=== PATIENT | female | born 1975 | race Asian ===

== ENCOUNTER 2016-07-29 21:56 | Emergency (ER) | payer OTHER ==
[~2016-07-29] VITALS: Ht 160 cm; Wt 76.7 kg
[~2016-07-29 21:56] MED LIST: PRENTAB26
[2016-07-29 21:58] VITALS: TEMP 36.9; Ht 160 cm; Wt 76.7 kg
[2016-07-29] MEDS ORDERED: XYLOCAINE 1%/SOD BICARB 20 ML VIAL INFIL ONE (22:15)
[2016-07-29] MEDS ORDERED: DOXY50CA PO (22:41)
[2016-07-29] MEDS ORDERED: IBUP-1050 PO (22:41)
[2016-07-29] MEDS ORDERED: SPIR50TA2 PO (22:48)
[2016-07-29 23:22] VITALS: BP 151/81; PULSE 71; O2SAT 100
--- NOTE | 2016-08-01 16:04 | EMERGENCY ROOM VISIT NOTE ---
ED Visit Note First contact with patient: 22:13 Chief Complaint: Left index finger laceration. History of Present Illness: Ms. Reed is a 40-year-old [place] female who ambulates into the ED accompanied by her complaining of a laceration of the distal phalanx of the left index finger. Patient reports she was preparing food for the upcoming and accidentally cut her left index finger over the posterior aspect of the left index finger with a sharp knife. Her accident occurred approximately 4 hours ago. She did control bleeding but did not wash the wound. Associated with her laceration she reports a stinging sensation. She rates her discomfort /10. The pain is nonradiating. Her pain worsens with palpation. She has not identified any alleviating factors related to the pain. She has not had any medications for pain prior to arrival at the hospital. She denies any associated symptoms including difficulty flexing and extending the DIP joint , finger weakness/numbness/tingling. Review of Systems: As noted above in history of present illness. Past Medical History: Patient denies. Current Medications: Medications Dose Route/Sig Max Daily Dose Days Date Category Dose Instructions Aldactone (Spironolactone) 50 Mg Tab 50 Mg PO DAILY 07/29/16 Reported TAKE THIS MEDICATION WITH FOOD Advil (Ibuprofen) 200 Mg Tab 200 Mg PO UD PRN 07/29/16 Reported TAKE PER PACKAGE DIRECTIONS Vibramycin (Doxycycline Hyclate) 50 Mg Cap 50 Mg PO DAILY 07/29/16 Reported TAKE THIS MEDICATION WITH FOOD Allergies to Medications: Patient denies. Social History: Patient is not employed; she lives with her and feels safe in her home environment; she denies tobacco and alcohol use. Tetanus Immunization Status: Patient reports up-to-date. Physical Examination: Vital Signs: Date Time Temp Pulse Resp B/P Pulse Ox O2 Delivery O2 Flow Rate FiO2 07/29/16 23:22 71 18 151/81 100 07/29/16 21:58 36.9 69 16 169/79 100 Room Air GENERAL: 40-year-old female in mild distress due to pain, nontoxic-appearing, afebrile and hemodynamically stable. NEUROLOGICAL: Awake, alert and oriented to person, place and time. Answering questions appropriately and following commands. Normal gait. Good hand eye coordination. No focal motor sensory deficits. SKIN: Warm, dry and pink. Left Index Finger: Over the posterior aspect of the finger just medial to the fingernail patient has a superficial near skin avulsion ; approximately 1 cm diameter oval pieces skin. No active bleeding. LEFT INDEX FINGER: Soft tissue injury as noted above. No gross bony deformity. Full range of motion. Full range of motion flexion and extension of the MCP, DIP and PIP joint. Throughout the finger the skin was warm and pink and capillary refill is brisk. She is able to distinguish light sensations through all dermatomes. ED Course: Patient is assessed as noted above. Patient's wound was cleansed with antibacterial soap and water. Initially I was going to attempt to use some suture strips to stabilize the near avulsion but then while stabilizing the piece of skin and fell off. Wound was cleansed with antibacterial soap and water once again and a sterile bacitracin dressing was applied. Patient was educated about tonight's findings and instructed on her treatment plan; she verbalizes understanding and agreement with this plan. Clinical Impression: Skin avulsion left index finger. Disposition: Patient discharged home in stable condition; prior to departure she was reassessed and subjectively reported feeling the same. Plan: Comfort measures, wound care, and signs of infection were discussed with the patient. Patient was encouraged to follow-up with PCP or return to the ED for signs of infection or any new/concerning symptoms.
== END 2016-07-29 23:22 | disposition home or self-care (01) ==
LOC: C.EDB 21:57 → C.EDC 23:22
DX: S61.211A Laceration without foreign body of left index finger without damage to nail, initial encounter (principal); W26.0XXA Contact with knife, initial encounter; Y93.G1 Activity, food preparation and clean up

== ENCOUNTER → 2016-07-31 | Outpatient (CLI) | payer OTHER ==
[~2016-07-31] MED LIST changes: +DOXY50CA PO; +IBUP-1050 PO; -PRENTAB26; +SPIR50TA2 PO
[2016-07-31 16:07] LABS: URINE APPEARANCE CLEAR (CLEAR); URINE BILIRUBIN NEG (NEG); URINE COLOR DK YELLOW; URINE NITRITE NEG (NEG); UROBILINOGEN NEG (NEG)
[2016-07-31 16:14] LABS: MANUAL MICROSCOPIC REQUIRED? NO; REVIEW REQ? NO
[2016-08-04 17:48] LABS: HERPES SIMPLEX AB IGG-1 >5.00; HERPES SIMPLEX AB IGG-2 0.14
[2016-08-05 03:24] LABS: CHLAMYDIA TRACH RNA*** NOT DETECTED (NOT DETECTED); GC (NEIS GONORRHOEAE)RNA** NOT DETECTED (NOT DETECTED)
== END | disposition home or self-care (01) ==
LOC: C.LAB1850 13:05
PROVIDERS: ATTEND Obstetrics & Gynecology
DX: R39.9 Unspecified symptoms and signs involving the genitourinary system (principal); Z71.1 Person with feared health complaint in whom no diagnosis is made

== ENCOUNTER → 2016-07-31 | Outpatient (CLI) | payer OTHER ==
[~2016-07-31] MED LIST changes: +PRENTAB26
== END | disposition home or self-care (01) ==
LOC: C.PAPS 18:01
PROVIDERS: ATTEND Obstetrics & Gynecology
DX: Z12.4 Encounter for screening for malignant neoplasm of cervix (principal); Z87.42 Personal history of other diseases of the female genital tract

== ENCOUNTER → 2017-08-02 | Outpatient (CLI) | payer OTHER ==
[~2017-08-02] MED LIST changes: -PRENTAB26
== END | disposition home or self-care (01) ==
LOC: C.PAPS 17:21
PROVIDERS: ATTEND Obstetrics & Gynecology
DX: Z12.4 Encounter for screening for malignant neoplasm of cervix (principal)

== ENCOUNTER 2021-07-29 15:24 | Inpatient (IN) ==
--- NOTE | 2021-07-29 15:55 | XRay Report ---
XR chest 1V portable HISTORY: 45 years-old Female SOB acute shortness of breath COMPARISON: None TECHNIQUE: Portable AP view of the chest FINDINGS: Cardiomediastinal and hilar silhouettes are within normal limits. No pneumothorax, pleural effusion, airspace consolidation or overt pulmonary edema. Mild mid thoracic dextroscoliosis. The bones appear grossly intact. IMPRESSION: No acute process. ACT 112: Negative or not required by law. The above report was generated using voice recognition software. It may contain grammatical, syntax o r spelling errors. Electronically signed by: Jm Chandler M.D. 07/29/2021 3:54 PM
[2021-07-29 16:10] LABS: Basophils # (auto) 0.02 K/uL (0-0.2); Basophils % (auto) 0.3 %; Eosinophils # (auto) 0.01 K/uL (0-0.5); Eosinophils % (auto) 0.1 %; Hematocrit (blood only) 43.7 % (37-47); Immature Granulocytes # (auto) 0.01 K/uL (0.00-0.02); Immature Granulocytes % (auto) 0.1 %; Lymphocytes # (auto) 1.25 K/uL (1.2-3.4); Lymphocytes % (auto) 17.6 %; Mean Corpuscular Hemoglobin 28.5 pg (25-34); Mean Platelet Volume 9.2 fL (7.4-10.4); Monocytes # (auto) 0.55 K/uL (0.11-0.59); Monocytes % (auto) 7.7 %; Neutrophils # (auto) 5.27 K/uL (1.4-6.5); Neutrophils % (auto) 74.2 %; Platelet Count 351 K/uL (130-400); RDW Coefficient of Variation 14.4 % (11.5-14.5); RDW Standard Deviation 46.8 fL (36.4-46.3); Red Blood Count 4.91 M/uL (4.2-5.4); White Blood Count 7.11 K/uL (4.8-10.8)
[2021-07-29 16:24] LABS: Partial Thromboplastin Ratio 1.1; Partial Thromboplastin Time 28.8 Seconds (21.0-31.0); Prothrombin Time 10.1 Seconds (9.0-12.0)
[2021-07-29 16:29] LABS: Appearance Urine Cloudy (Clear); Bilirubin Urine Negative (Negative); Color Urine Red; Glucose Urine UA Negative (Negative); Ketones Urine Negative (Negative); Leukocyte Esterase Urine Trace (Negative); Nitrite Urine Negative (Negative); Protein Urine 2+ (Negative); Specific Gravity Urine >= 1.030 (1.000-1.030); Urobilinogen Urine Negative (Negative)
[2021-07-29 16:31] LABS: Troponin I < 0.03 ng/ml (0-0.04)
[2021-07-29 16:35] LABS: Blood Urine 3+ (Negative)
[2021-07-29 16:36] LABS: Alanine Aminotransferase 5 U/L (7-52); Albumin Globulin Ratio 1.3 (0.9-2); Albumin Level 4.2 gm/dl (3.4-5.0); Alkaline Phosphatase 56 U/L (34-104); Anion Gap 7 (3-11); Aspartate Aminotransferase 11 U/L (13-39); BUN Creatinine Ratio 20.8 (10-20); Bilirubin,Total 0.6 mg/dl (0.2-1.0); Blood Urea Nitrogen 15 mg/dl (6-23); Calcium 9.2 mg/dl (8.5-10.1); Carbon Dioxide 27 mmol/L (21-32); Chloride 105 mmol/L (98-107); Est GFR (Non-African American) 101.9 ml/min; Globulin 3.2 gm/dl (2.5-4.0); Glucose 138 mg/dl (70-99(Fasting)); Magnesium 2.2 mg/dl (1.7-2.4); Potassium 3.7 mmol/L (3.5-5.1); Sodium 139 mmol/L (136-145); Total Protein 7.4 gm/dl (6.0-8.3)
[2021-07-29 16:38] LABS: RBC Urine >30 /hpf (0-4)
[2021-07-29 16:42] LABS: Bacteria Urine Negative (Negative); Epithelial Cell Urine 0-5 /lpf (0-5)
--- NOTE | 2021-07-29 18:01 | Electrocardiogram Report ---
Test Reason : Blood Pressure : / mmHG Vent. Rate : 082 BPM Atrial Rate : 082 BPM P-R Int : 138 ms QRS Dur : 098 ms QT Int : 380 ms P-R-T Axes : 066 071 032 degrees QTc Int : 443 ms Poor data quality, interpretation may be adversely affected Normal sinus rhythm Possible Left atrial enlargement Borderline ECG No previous ECGs available Confirmed by Chas Garland ([id number]) on 07/29/2021 6:01:28 PM Referred By: SELF Confirmed By:Venu Garland
[2021-07-29] MEDS ORDERED: OPTIRAY 320 125ml IV ONE (18:44)
--- NOTE | 2021-07-29 18:54 | Emergency Department Note ---
History of Present Illness General Chief complaint: Shortness of Breath/Dyspnea Stated complaint: SWOLLEN LEFT BREAST, SOB WHEN LAYING Time Seen by Provider: 07/29/21 18:14 History of Present Illness Provider complaint: Shortness of breath left breast pain Onset (ago): week(s) 1 Location: chest Quality: + aching and + dull Relieved By: + none Exacerbated By: + none Associated symptoms: + shortness of breath 45-year-old female presents emergency department for left breast pain and shortness of breath. Patient and her report that the patient had a recent biopsy done 6 days ago at [facility] which showed left breast cancer. She states her pain is made worse when she lies flat. She states she is also having difficulty breathing. She reports no cough. No fevers. No hemoptysis. No recent travel. Home Medications Medication Instructions Recorded Confirmed Type No Known Home Medications 07/29/21 07/29/21 History Allergies Allergy/AdvReac Type Severity Reaction Status Date / Time No Known Drug Allergies Allergy Verified 07/29/21 18:54 Past Med/Surg History Medical History Acute endometritis Breast cancer Dysmenorrhea Metrorrhagia Nephrolithiasis Surgical History No pertinent past surgical history Family History Father Lung cancer Denies family history of Ovarian cancer Breast cancer Colorectal cancer Uterine cancer Social History Smoking Status: Never smoker Hx Alcohol Use: No Hx Substance Use: No marital status: Current Living Situation: Spouse current occupational status: employed current occupation: [employer] Feels Safe at Home: Yes Review of Systems A total of 10 systems reviewed and were otherwise negative Physical Exam Vital Signs Vital Signs - 24 hr 07/29/21 15:28 07/29/21 18:14 07/29/21 18:16 Temperature 36.8 C Temperature Source Temporal Artery Scan Pulse Rate 78 Pulse Rate [Left] 63 Pulse Rhythm [Left] Regular Pulse Strength [Left] Normal Respiratory Rate 18 17 Respiratory Effort / Characteristics Non-Labored Non-Labored Respiratory Depth Normal Respiratory Pattern Regular Blood Pressure 128/68 Blood Pressure [Right Arm] 131/90 Blood Pressure Mean 88 Blood Pressure Mean [Right Arm] 103 Blood Pressure Position Sitting Blood Pressure Position [Right Arm] Pulse Oximetry 99 100 Oxygen Delivery Method Room Air Room Air Sepsis Recent Fever Within 48 Hours No Sepsis New/Unexplained Change in Mental Status No Sepsis Action Taken by Nursing No Action Required 07/29/21 18:34 07/29/21 19:32 07/29/21 20:58 Temperature Temperature Source Pulse Rate Pulse Rate [Left] 75 65 Pulse Rhythm [Left] Regular Pulse Strength [Left] Normal Respiratory Rate 17 17 Respiratory Effort / Characteristics Non-Labored Non-Labored Respiratory Depth Normal Normal Respiratory Pattern Regular Blood Pressure Blood Pressure [Right Arm] 124/63 142/81 H Blood Pressure Mean Blood Pressure Mean [Right Arm] 83 101 Blood Pressure Position Blood Pressure Position [Right Arm] Lying Pulse Oximetry 98 98 98 Oxygen Delivery Method Room Air Room Air Room Air Sepsis Recent Fever Within 48 Hours Sepsis New/Unexplained Change in Mental Status Sepsis Action Taken by Nursing 07/29/21 22:30 Temperature Temperature Source Pulse Rate Pulse Rate [Left] 74 Pulse Rhythm [Left] Regular Pulse Strength [Left] Normal Respiratory Rate 18 Respiratory Effort / Characteristics Non-Labored Respiratory Depth Normal Respiratory Pattern Regular Blood Pressure Blood Pressure [Right Arm] 138/64 Blood Pressure Mean Blood Pressure Mean [Right Arm] 88 Blood Pressure Position Blood Pressure Position [Right Arm] Lying Pulse Oximetry 98 Oxygen Delivery Method Room Air Sepsis Recent Fever Within 48 Hours Sepsis New/Unexplained Change in Mental Status Sepsis Action Taken by Nursing Physical Exam GENERAL: She is oriented to person, place, and time. She appears well-developed and well-nourished. She does not appear distressed. HENT: Exam performed. -Head: Normocephalic and atraumatic. -Right Ear: External ear normal. No mastoid tenderness. -Left Ear: External ear normal. No mastoid tenderness. -Mouth/Throat: The oropharynx is clear and moist. No trismus in the jaw. No dental abscesses or uvula swelling. No oropharyngeal exudate or tonsillar abscesses. EYES: Conjunctivae and EOM are normal. Pupils are equal, round, and reactive to light. Right eye exhibits no discharge. Left eye exhibits no discharge. No scleral icterus. NECK: Normal range of motion. Neck supple. No JVD present. No spinous process tenderness present. No carotid bruit present. No rigidity. No tracheal deviation and normal range of motion present. No Brudzinski's sign and no Kernig's sign no estelita. CV: Normal rate, regular rhythm, normal heart sounds and intact distal pulses. There is no peripheral edema. Palpable radial pulses bue. PULM/CHEST: Effort normal and breath sounds normal. No respiratory distress. No stridor. She has no wheezes. She has no rales. -Chest Wall: She exhibits no tenderness. BREAST: Conducted with female nursing fixed capital clerk Kelly at bedside. Left breast: periareolar mass. No nipple discharge or overlying cellulitis of the breast. Right breast: No palpable masses. ABD: The abdomen is soft. Bowel sounds are normal. She has no distension. No mass is present. There is no tenderness. There is no rebound, no guarding, no Chinchilla's sign and no tenderness at McBurney's point. Rovsig negative MUSC/SKEL: Normal range of motion. There is no peripheral edema, tenderness or deformity. LYMPH: No cervical adenopathy. NEURO: She is alert and oriented to person, place, and time. She has normal strength. No cranial nerve deficit or sensory deficit. Coordination and gait normal. GCS eye subscore is 4. GCS verbal subscore is 5. GCS motor subscore is 6. Cerebellar tests wnl. SKIN: Skin is warm and dry. She is not diaphoretic. PSYCH: She has a normal mood and affect. Behavior is normal. Judgment and thought content normal. Course Course 1813: The patient was evaluated in room A12. A complete history and physical exam was performed Cardiac monitoring: An order was placed for continuous cardiac monitoring. The monitor shows a rate of 80 with sinus rhythm 1944: Vital signs stable. Labs within normal limits. Imaging shows no breast abscess or problems with the soft tissue in the chest. CTA of the chest shows possible small segmental PEs. Discussed the case with INJECTION MOLDING OPERATOR Dr. Norwood who states that her office was probably recommending the patient follow-up with [facility] about her breast cancer however the patient has not made contact with them yet. Discussed with Dr. Christianson who who states to hold off on anticoagulation at this time he will evaluate the patient. Administered Medications Discontinued Medications Ioversol (Optiray 320 125ml) 120 ml IV ONCE ONE Stop: 07/29/21 18:45 Last Admin: 07/29/21 18:45 Dose: 120 ml Documented by: [id number] Medical Decision Making Laboratory Data Result diagrams: 07/29/21 15:53 07/29/21 15:53 Lab Results 07/29/21 07/29/21 07/29/21 Range/Units 15:53 15:53 15:53 WBC 7.11 (4.8-10.8) K/uL RBC 4.91 (4.2-5.4) M/uL Hgb 14.0 (12.0-16.0) g/dL Hct 43.7 (37-47) % MCV 89.0 (80-100) fL MCH 28.5 (25-34) pg MCHC 32.0 (32-36) g/dL RDW Std Deviation 46.8 H (36.4-46.3) fL RDW Coeff of Fredis 14.4 (11.5-14.5) % Plt Count 351 (130-400) K/uL MPV 9.2 (7.4-10.4) fL Immature Gran % (Auto) 0.1 % Neut % (Auto) 74.2 % Lymph % (Auto) 17.6 % [place] % (Auto) 7.7 % Eos % (Auto) 0.1 % Baso % (Auto) 0.3 % Neut # (Auto) 5.27 (1.4-6.5) K/uL Lymph # (Auto) 1.25 (1.2-3.4) K/uL [place] # (Auto) 0.55 (0.11-0.59) K/uL Eos # (Auto) 0.01 (0-0.5) K/uL Baso # (Auto) 0.02 (0-0.2) K/uL Immature Gran # (Auto) 0.01 (0.00-0.02) K/uL PT 10.1 (9.0-12.0) Seconds INR 1.0 (0.9-1.1) APTT 28.8 (21.0-31.0) Seconds PTT Ratio 1.1 Sodium 139 (136-145) mmol/L Potassium 3.7 (3.5-5.1) mmol/L Chloride 105 (98-107) mmol/L Carbon Dioxide 27 (21-32) mmol/L Anion Gap 7 (3-11) BUN 15 (6-23) mg/dl Creatinine 0.72 (0.6-1.2) mg/dl Est Cr Clr Drug Dosing 97.0 ml/min Est GFR ( Amer) 118.0 ml/min Est GFR (Non-Af Amer) 101.9 ml/min BUN/Creatinine Ratio 20.8 H (10-20) Glucose 138 H (70-99(Fasting)) mg/dl Calcium 9.2 (8.5-10.1) mg/dl Magnesium 2.2 (1.7-2.4) mg/dl Total Bilirubin 0.6 (0.2-1.0) mg/dl AST 11 L (13-39) U/L ALT 5 L (7-52) U/L Alkaline Phosphatase 56 (34-104) U/L Troponin I < 0.03 (0-0.04) ng/ml Total Protein 7.4 (6.0-8.3) gm/dl Albumin 4.2 (3.4-5.0) gm/dl Globulin 3.2 (2.5-4.0) gm/dl Albumin/Globulin Ratio 1.3 (0.9-2) Urine Color Urine Appearance (Clear) Urine pH (4.5-7.5) Ur Specific [place] (1.000-1.030) Urine Protein (Negative) Urine Glucose (UA) (Negative) Urine Ketones (Negative) Urine Blood (Negative) Urine Nitrite (Negative) Urine Bilirubin (Negative) Urine Urobilinogen (Negative) Ur Leukocyte Esterase (Negative) Urine RBC (0-4) /hpf Urine WBC (0-5) /hpf Ur Epithelial Cells (0-5) /lpf Urine Bacteria (Negative) SARS-CoV-2, RNA, NAAT (NEGATIVE) 07/29/21 07/29/21 Range/Units 18:25 Unknown WBC (4.8-10.8) K/uL RBC (4.2-5.4) M/uL Hgb (12.0-16.0) g/dL Hct (37-47) % MCV (80-100) fL MCH (25-34) pg MCHC (32-36) g/dL RDW Std Deviation (36.4-46.3) fL RDW Coeff of Fredis (11.5-14.5) % Plt Count (130-400) K/uL MPV (7.4-10.4) fL Immature Gran % (Auto) % Neut % (Auto) % Lymph % (Auto) % [place] % (Auto) % Eos % (Auto) % Baso % (Auto) % Neut # (Auto) (1.4-6.5) K/uL Lymph # (Auto) (1.2-3.4) K/uL [place] # (Auto) (0.11-0.59) K/uL Eos # (Auto) (0-0.5) K/uL Baso # (Auto) (0-0.2) K/uL Immature Gran # (Auto) (0.00-0.02) K/uL PT (9.0-12.0) Seconds INR (0.9-1.1) APTT (21.0-31.0) Seconds PTT Ratio Sodium (136-145) mmol/L Potassium (3.5-5.1) mmol/L Chloride (98-107) mmol/L Carbon Dioxide (21-32) mmol/L Anion Gap (3-11) BUN (6-23) mg/dl Creatinine (0.6-1.2) mg/dl Est Cr Clr Drug Dosing ml/min Est GFR ( Amer) ml/min Est GFR (Non-Af Amer) ml/min BUN/Creatinine Ratio (10-20) Glucose (70-99(Fasting)) mg/dl Calcium (8.5-10.1) mg/dl Magnesium (1.7-2.4) mg/dl Total Bilirubin (0.2-1.0) mg/dl AST (13-39) U/L ALT (7-52) U/L Alkaline Phosphatase (34-104) U/L Troponin I (0-0.04) ng/ml Total Protein (6.0-8.3) gm/dl Albumin (3.4-5.0) gm/dl Globulin (2.5-4.0) gm/dl Albumin/Globulin Ratio (0.9-2) Urine Color Red Urine Appearance Cloudy A (Clear) Urine pH 6.0 (4.5-7.5) Ur Specific Sp[place]y >= 1.030 (1.000-1.030) Urine Protein 2+ H (Negative) Urine Glucose (UA) Negative (Negative) Urine Ketones Negative (Negative) Urine Blood 3+ H (Negative) Urine Nitrite Negative (Negative) Urine Bilirubin Negative (Negative) Urine Urobilinogen Negative (Negative) Ur Leukocyte Esterase Trace H (Negative) Urine RBC >30 H (0-4) /hpf Urine WBC 5-10 H (0-5) /hpf Ur Epithelial Cells 0-5 (0-5) /lpf Urine Bacteria Negative (Negative) SARS-CoV-2, RNA, NAAT NEGATIVE (NEGATIVE) Imaging Data Radiologist's Impression: Chest X-Ray 07/29/21 15:33 XR chest 1V portable HISTORY: 45 years-old Female SOB acute shortness of breath COMPARISON: None TECHNIQUE: Portable AP view of the chest FINDINGS: Cardiomediastinal and hilar silhouettes are within normal limits. No pneumothorax, pleural effusion, airspace consolidation or overt pulmonary edema. Mild mid thoracic dextroscoliosis. The bones appear grossly intact. IMPRESSION: No acute process. ACT 112: Negative or not required by law. The above report was generated using voice recognition software. It may contain grammatical, syntax or spelling errors. Electronically signed by: Jm Chandler M.D. 07/29/2021 3:54 PM Chest CTA 07/29/21 18:14 CT angio chest PE protocol CT DOSE: 377.28 mGy.cm HISTORY: 45 years-old Female with sob L breast pain s/p breast biopsy for CA. Acute shortness of breath with left-sided chest/breast pain. TECHNIQUE: Multiple CTA images of the chest were obtained after the intravenous administration of 120 ml Optiray. Coronal and sagittal MIPS were obtained from the axial data set and were submitted for review. All measurements were obtained according to NASCET criteria. A dose lowering technique was utilized adhering to the principles of ALARA. COMPARISON: Chest radiograph 07/29/2021 FINDINGS: CTA: Mild cardiomegaly. No pericardial effusion. No thoracic aortic aneurysm or dissection. There is patency of the imaged great vessels. The subsegmental pulmonary arterial branches are suboptimally evaluated secondary to contrast bolus timing. Questioned filling defects are present within subsegmental pulmonary arterial branches within the lingula as seen on image 121 of series 4. No central pulmonary emboli are identified. CT CHEST: Unremarkable thyroid. No adenopathy. Trace pleural effusions. No pneumothorax, overt pulmonary edema or suspicious pulmonary nodule. Mild subsegmental bibasilar atelectasis. The central airways appear patent. No acute process of the imaged upper abdomen. Unremarkable soft tissues. Biopsy clip of the left breast is partially imaged. No acute fracture. IMPRESSION: 1. No central pulmonary emboli. Ill-defined apparent filling defects within subsegmental pulmonary arterial branches of the lingula are favored to be artifactual. Tiny pulmonary emboli are considered less likely. Correlation with lower extremity Doppler recommended. 2. Trace pleural effusions with mild bibasilar atelectasis. ACT 112: Negative or not required by law. The above report was generated using voice recognition software. It may contain grammatical, syntax or spelling errors. Electronically signed by: Jm Chandler M.D. 07/29/2021 6:58 PM ECG Data Indication: + chest pain Rate (beats per minute): 82 Rhythm: + normal sinus ECG Intervals/blocks: + Normal QRS, + Normal FL and + Normal QT-c ECG ST segments: + Normal ST segments [facility] Narrative 1813: The patient was evaluated in room A12. A complete history and physical exam was performed Cardiac monitoring: An order was placed for continuous cardiac monitoring. The monitor shows a rate of 80 with sinus rhythm 1944: Vital signs stable. Labs within normal limits. Imaging shows no breast abscess or problems with the soft tissue in the chest. CTA of the chest shows possible small segmental PEs. Discussed the case with INJECTION MOLDING OPERATOR Dr. Norwood who states that her office was probably recommending the patient follow-up with [facility] about her breast cancer however the patient has not made contact with them yet. Discussed with Dr. Christianson who who states to hold off on anticoagulation at this time he will evaluate the patient. Impression & Plan Chest pain Discharge Plan Visit Data Chief Complaint: Shortness of Breath/Dyspnea Stated Complaint: SWOLLEN LEFT BREAST, SOB WHEN LAYING ED Provider: Flakito Carrasco Discharge Problem: Chest pain Patient Disposition: Being Evaluated by Hospitalist Discharge Instructions Interventions: ED Discharge Assessment Last Done: 07/29/21 22:45 Forms Stand Alone Forms: [employer] Prescriptions Prescriptions: No Action No Known Home Medications RF: 0 Referrals Referrals: PCP,NO [Physician] -
--- NOTE | 2021-07-29 19:00 | CT Scan Report ---
CT angio chest PE protocol CT DOSE: 377.28 mGy.cm HISTORY: 45 years-old Female with sob L breast pain s/p breast biopsy for CA. Acute shortness of br eath with left-sided chest/breast pain. TECHNIQUE: Multiple CTA images of the chest were obtained after the intravenous administration of 120 ml Optiray. Coronal and sagittal MIPS were obtained from the axial data set and were submitted for review. All measurements were obtained according to NASCET criteria. A dose lowering technique was u tilized adhering to the principles of ALARA. COMPARISON: Chest radiograph 07/29/2021 FINDINGS: CTA: Mild cardiomegaly. No pericardial effusion. No thoracic aortic aneurysm or dissection. There is paten cy of the imaged great vessels. The subsegmental pulmonary arterial branches are suboptimally evaluat ed secondary to contrast bolus timing. Questioned filling defects are present within subsegmental pul monary arterial branches within the lingula as seen on image 121 of series 4. No central pulmonary em boli are identified. CT CHEST: Unremarkable thyroid. No adenopathy. Trace pleural effusions. No pneumothorax, overt pulmonary edema or suspicious pulmonary nodule. Mild subsegmental bibasilar atelectasis. The central airways appear p atent. No acute process of the imaged upper abdomen. Unremarkable soft tissues. Biopsy clip of the left tana st is partially imaged. No acute fracture. IMPRESSION: 1. No central pulmonary emboli. Ill-defined apparent filling defects within subsegmental pulmonary ar terial branches of the lingula are favored to be artifactual. Tiny pulmonary emboli are considered le ss likely. Correlation with lower extremity Doppler recommended. 2. Trace pleural effusions with mild bibasilar atelectasis. ACT 112: Negative or not required by law. The above report was generated using voice recognition software. It may contain grammatical, syntax o r spelling errors. Electronically signed by: Jm Chandler M.D. 07/29/2021 6:58 PM
--- NOTE | 2021-07-29 21:57 | History and Physical Report ---
DATE OF ADMISSION: 07/29/2021. CHIEF COMPLAINT: Shortness of breath. HISTORY OF PRESENT ILLNESS: This is a 45-year-old female with no significant past medical history. Recently on a yearly checkup, on mammogram, she was found to have a small breast mass in the left breast and she is status post biopsy and she was told she has cancer and she was supposed to go to [place]. After that, she was feeling very depressed. She says she has lost 6 pounds in the last 2 days. She is also feeling heaviness in the chest. Whenever she is laying, she is feeling short of breath. Her thought that there was some redness below the breast, that is the reason she came to the hospital. On workup, she is currently saturating fine on room air. She is comfortable. CT of the chest shows ill-defined apparent filling defect within the subsegmental pulmonary arterial branches, in the lingula are favored to be artifactual. Tiny pulmonary emboli are considered less likely. Correlation of the lower extremity Doppler recommended, so that is why we were called for admission. The patient denies any chest pain. No headache, no blurred vision, no earache, no runny nose, no sore throat, no cough, no nausea, no abdominal pain. Normal bowel and bladder movements. ALLERGIES: No known drug allergies. PAST MEDICAL HISTORY: Denies. PAST SURGICAL HISTORY: Colonoscopy and EGD. MEDICATIONS: Not taking any medications. FAMILY HISTORY: Father had lung cancer; paternal grandfather had liver disease. SOCIAL HISTORY: No smoking. No alcohol. No drug use. REVIEW OF SYSTEMS: As per HPI. Rest of the review of systems is negative. PHYSICAL EXAMINATION: GENERAL: The patient is of moderate build, not in acute distress. VITAL SIGNS: Temperature 36.8, pulse 65, respiratory rate 17, blood pressure 142/81, oxygen 98% on room air. HEENT: Pupils equal, round and reactive to light. Oral mucosa moist. NECK: No JVD, no neck masses. CARDIOVASCULAR: S1 and S2 heard, regular rate and rhythm. No murmur, no gallop. RESPIRATORY SYSTEM: Normal AP diameter. No accessory muscle use. No wheezing, no crackles. ABDOMEN: Soft, bowel sounds present, nontender, no distention. BREASTS: On physical examination, there is no redness seen below the left breast. CENTRAL NERVOUS SYSTEM: Cranial nerves II-XII grossly intact, nonfocal. EXTREMITIES: No edema, no erythema. LABORATORY DATA: WBC 7.1, hemoglobin 14, hematocrit 43.7, platelets 351. PT 10.1, INR 1, APTT 28.8. Sodium 139, potassium 3.7, chloride 105, bicarb 27, BUN 15, creatinine 0.7, serum glucose 138, calcium 9.2, magnesium 2.2, total bilirubin 0.6, AST 11, ALT 5, alkaline phosphatase 56. Troponin I less than 0.03. Urinalysis cloudy, +3 blood, trace leukocyte esterase. Urine bacteria negative. test pending. SARS-CoV-2 negative. IMAGING DATA: CTA of the chest, no central pulmonary emboli, ill-identified apparent filling defects within subsegmental pulmonary arterial branches of the lingula, are favored to be artifactual. Tiny pulmonary emboli are considered less likely. Correlation with lower extremity Doppler recommended. Trace pleural effusions with mild bibasilar atelectasis. Chest x-ray, no acute process. EKG: Normal sinus rhythm at a rate of 82, possible left atrial enlargement. No previous ECGs available. ASSESSMENT AND PLAN: This is a 45-year-old female who presents with shortness of breath. 1. Shortness of breath: The patient recently was found to have small breast mass on the left breast and status post biopsy, which was showing carcinoma. Since then, she is having heaviness in the chest whenever she lies down and feels short of breath. CT chest results as above. The patient also has chest discomfort, so will get echocardiogram and lower extremity Doppler. Will start on low-dose IV heparin. If doppler unremarkable, may need to discuss with radiology to consider repeating CAT scan. Closely monitor in the [employer] tele. 2. Breast mass: Follow up with PCP and oncology. 3. Deep venous thrombosis prophylaxis: Lovenox for now. DISPOSITION: Closely monitor in the [employer]. To be determined. Job ID: [id number] MTDD
[2021-07-29] MEDS ORDERED: ONDANSETRON INJ 2 MG/ML 2 ML VIAL IV PRN (23:54)
[2021-07-29] MEDS ORDERED: ACETAMINOPHEN 325 MG TAB PO PRN (23:54)
[2021-07-29] MEDS ORDERED: POLYETHYLENE (MIRALAX) 17 GM PACK PO PRN (23:54)
[2021-07-29] MEDS ORDERED: NITROGLYCERIN SL 0.4 MG/TAB TAB SL PRN (23:54)
[2021-07-29] MEDS ORDERED: SODIUM CHLORIDE 0.9% 1000ML 1,000 ML IV SCH (23:54)
[2021-07-30 06:04] LABS: Basophils # (auto) 0.04 K/uL (0-0.2); Basophils % (auto) 0.5 %; Eosinophils # (auto) 0.08 K/uL (0-0.5); Eosinophils % (auto) 1.1 %; Hematocrit (blood only) 41.9 % (37-47); Hemoglobin 13.3 g/dL (12.0-16.0); Immature Granulocytes # (auto) 0.01 K/uL (0.00-0.02); Immature Granulocytes % (auto) 0.1 %; Lymphocytes # (auto) 2.16 K/uL (1.2-3.4); Lymphocytes % (auto) 28.6 %; Mean Corpuscular Hemoglobin 28.3 pg (25-34); Mean Corpuscular Hgb Conc 31.7 g/dL (32-36); Mean Corpuscular Volume 89.1 fL (80-100); Mean Platelet Volume 9.4 fL (7.4-10.4); Monocytes # (auto) 0.87 K/uL (0.11-0.59); Monocytes % (auto) 11.5 %; Neutrophils # (auto) 4.39 K/uL (1.4-6.5); Neutrophils % (auto) 58.2 %; Platelet Count 329 K/uL (130-400); RDW Coefficient of Variation 14.2 % (11.5-14.5); RDW Standard Deviation 46.6 fL (36.4-46.3); White Blood Count 7.55 K/uL (4.8-10.8)
[2021-07-30 06:22] LABS: BUN Creatinine Ratio 25.8 (10-20); Calcium 8.5 mg/dl (8.5-10.1); Creatinine Clr Calc Pharmacy 106.2 ml/min; Est GFR (African American) 124.5 ml/min; Est GFR (Non-African American) 107.4 ml/min; Magnesium 2.4 mg/dl (1.7-2.4)
[2021-07-30] MEDS ORDERED: ENOXAPARIN INJ 40 MG/0.4 ML SYR SQ SCH (09:00)
--- NOTE | 2021-07-30 09:13 | Ultrasound Report ---
BILATERAL LOWER EXTREMITY VENOUS DOPPLER HISTORY: Screening study in a patient with equivocal pulmonary emboli Questionable PE dvt? COMPARISON STUDY: CTA of the chest 07/29/2021 FINDINGS: There is normal compressibility, flow, and augmentation within the bilateral lower extremit y deep venous systems. IMPRESSION: No DVT within the right or left lower extremity. ACT 112: Negative or not required by law. Electronically signed by: Jm Chandler M.D. 07/30/2021 9:11 AM
--- NOTE | 2021-07-30 18:01 | Discharge Summary ---
Date of Service July 30, 2021 Admission HPI Per Admitting Provider DATE OF ADMISSION: 07/29/2021. CHIEF COMPLAINT: Shortness of breath. HISTORY OF PRESENT ILLNESS: This is a 45-year-old female with no significant past medical history. Recently on a yearly checkup, on mammogram, she was found to have a small breast mass in the left breast and she is status post biopsy and she was told she has cancer and she was supposed to go to [place]. After that, she was feeling very depressed. She says she has lost 6 pounds in the last 2 days. She is also feeling heaviness in the chest. Whenever she is laying, she is feeling short of breath. Her thought that there was some redness below the breast, that is the reason she came to the hospital. On workup, she is currently saturating fine on room air. She is comfortable. CT of the chest shows ill-defined apparent filling defect within the subsegmental pulmonary arterial branches, in the lingula are favored to be artifactual. Tiny pulmonary emboli are considered less likely. Correlation of the lower extremity Doppler recommended, so that is why we were called for admission. The patient denies any chest pain. No headache, no blurred vision, no earache, no runny nose, no sore throat, no cough, no nausea, no abdominal pain. Normal bowel and bladder movements. ALLERGIES: No known drug allergies. PAST MEDICAL HISTORY: Denies. PAST SURGICAL HISTORY: Colonoscopy and EGD. MEDICATIONS: Not taking any medications. FAMILY HISTORY: Father had lung cancer; paternal grandfather had liver disease. SOCIAL HISTORY: No smoking. No alcohol. No drug use. REVIEW OF SYSTEMS: As per HPI. Rest of the review of systems is negative. Admission Exam Per Admitting Provider GENERAL: The patient is of moderate build, not in acute distress. VITAL SIGNS: Temperature 36.8, pulse 65, respiratory rate 17, blood pressure 142/81, oxygen 98% on room air. HEENT: Pupils equal, round and reactive to light. Oral mucosa moist. NECK: No JVD, no neck masses. CARDIOVASCULAR: S1 and S2 heard, regular rate and rhythm. No murmur, no gallop. RESPIRATORY SYSTEM: Normal AP diameter. No accessory muscle use. No wheezing, no crackles. ABDOMEN: Soft, bowel sounds present, nontender, no distention. BREASTS: On physical examination, there is no redness seen below the left breast. CENTRAL NERVOUS SYSTEM: Cranial nerves II-XII grossly intact, nonfocal. EXTREMITIES: No edema, no erythema. Principal Diagnosis Shortness of breath likely anxiety Discharge Exam GENERAL: Alert and oriented x3. NAD, on RA. HEENT: No pallor, no icterus. Pupils equal, round and reactive to light. Oral mucosa moist. NECK: No JVD, no neck masses. HEART: S1 and S2 heard. Regular rate and rhythm. No murmur, no gallop. RESPIRATORY SYSTEM: Normal AP diameter. No accessory muscle use. No wheezing, no crackles. ABDOMEN: Soft, bowel sounds present, nontender, no distention. CENTRAL NERVOUS SYSTEM: No facial droop. Speech is clear. Obeys simple commands. Moves extremities. EXTREMITIES: No edema, no erythema seen. Discharge Data Allergies Allergy/AdvReac Type Severity Reaction Status Date / Time No Known Drug Allergies Allergy Verified 07/29/21 18:54 Consultations 07/29/21 19:48 ED Decision to Admit Stat Ordered Studies 07/29/21 18:14 CT angio chest PE protocol Stat 07/30/21 08:30 US venous doppler [facility] Urgent Hospital Course (1) Shortness of breath: (2) Anxiety: 45-year-old female with no significant past medical history but recently diagnosed with left breast mass on yearly mammogram which turned out to be cancer and is scheduled to establish with oncology at [place]. She was feeling very depressed and came in to our ED with complaint of shortness of breath. CTA chest done in the ED was negative for PE but there was a lingering concern for subsegmental PE versus artifact. Echo done was negative for right heart strain and BLE US Doppler was negative for any DVT. Patient does not have any pain while breathing and is vitally stable. There was concern of likely fatty tissue induration below the left breast, advised to keep an eye on it and advised to bring it today attention off oncology when they visit after discharge. All imaging including CXR/CTA chest and venous Doppler BLE were reviewed and no acute findings appreciated. Patient's was given update about the patient via video call at bedside. He voiced understanding and was agreeable to the plan of care. Patient being discharged home with following instruction at the point of discharge: Follow-up with your primary care physician within a week time. Follow-up with oncology as a scheduled as an outpatient. As discussed at the bedside, the lesion/? Mass below the left breast is likely benign fat, keep an eye over it. As discussed at the bedside, I did a rediscussion with radiology about your CTA of the chest and given other imaging/radiology are negative for any clot, the chances that the possibility of blood clot read earlier in the CTA chest is likely artifact than actual blood clot. Total Time Total Time Spent Total Time Spent (In Minutes): 35 Discharge Plan Discharge Items Patient Disposition: Home - Self-Care Reason For Visit: SOB Discharge Diagnosis: Shortness of breath likely anxiety Activity: Resume your previous activity Non-emergency contact: Primary Care Provider Call non-emergency contact if: you have any medication questions, your symptoms worsen and your temperature is above 101 Follow-up/Referrals: Rylan Escobar MD [Primary Care Provider] - (Date & Time 08/04/2021 11:00 AM Provider Rylan Escobar MD Department [facility] ) Diet: Heart Healthy Addtl Attending Provider Instructions: Follow-up with your primary care physician within a week time. Follow-up with oncology as a scheduled as an outpatient. As discussed at the bedside, the lesion/? Mass below the left breast is likely benign fat, keep an eye over it. As discussed at the bedside, I did a rediscussion with radiology about your CTA of the chest and given other imaging/radiology are negative for any clot, the chances that the possibility of blood clot read earlier in the CTA chest is likely artifact than actual blood clot. Pending Studies at Discharge: No Stand-Alone Forms: [facility], Smoking Cessation Medications and DC Order Prescriptions: No Action No Known Home Medications RF: 0 Discharge Orders: Discharge Order (Routine); Ordered 07/30/21 Ordered By: Shiela Lee Admission Data Admit Date/Time: 07/29/21 21:10 Attending Provider: Shiela Lee Admit Provider: Ej Christianson Primary Care Provider: Rylan Escobar Other Providers: Ej Christianson Other Interventions: Discharge Summary Assessment (RN) Last Done: 07/30/21 15:19
== END 2021-07-30 16:05 | disposition home or self-care (01) | DRG 880 ==
LOC: ED 15:24 → 2N 21:10

== ENCOUNTER 2024-09-30 10:34 | Observation (INO) ==
--- NOTE | 2024-09-30 11:22 | Emergency Department Note ---
History of Present Illness General Chief complaint: Abdominal Pain Stated complaint: ABD/BACK PAIN Time Seen by Provider: 09/30/24 10:44 History of Present Illness Maximum Pain Intensity: 7 This 48-year-old female presents today with her , for evaluation of upper abdominal and chest discomfort that woke her from sleep this morning. The patient states her pain was significant and radiated through to her back. She could not get comfortable. She states she could not lay down and could not stand up. The pain has improved but not fully resolved. She was nauseated this morning but could not vomit. She has had some episodes of diarrhea, which her states is normal for her. She has a history of breast cancer diagnosed 3 years ago and is currently on Nerlynx, an oral chemotherapy agent. He states this causes her intermittent diarrhea. She denies any fevers or chills. No sweats. No shortness of breath or cough. No known ill contacts. No prior history of similar discomfort. She still has her gallbladder. The patient states she ate dinner last night around midnight and had a chicken stirfry with eggplant. She felt well at that time. No other treatment. No additional complaints. Home Medications Medication Instructions Recorded Confirmed Type multivitamin 1 tab PO DAILY 02/10/22 09/30/24 History omega-3 fatty acids 1,000 mg 1,000 mg PO DAILY 02/10/22 09/30/24 History capsule tamoxifen 20 mg tablet 20 mg PO DAILY 07/16/22 09/30/24 History lactobacillus combination no.9 4 4,000 mmu cells PO DAILY 01/13/23 09/30/24 History billion cell capsule (Adult 50 Plus Probiotic) loperamide 2 mg capsule (Imodium 2 mg PO Q6H PRN loose stools 01/18/24 09/30/24 History A-D) neratinib 40 mg tablet (Nerlynx) 240 mg PO DAILY 01/18/24 09/30/24 History Allergies Allergy/AdvReac Type Severity Reaction Status Date / Time No Known Drug Allergies Allergy Verified 08/08/24 09:15 Past Med/Surg History Problem List (Updated 10/01/24 @ 06:24 by Devendra Tena PA-C) Acute cholecystitis (Acute) Vulvitis History of infusaport central venous catheter insertion Encounter for pre-operative examination Shortness of breath Malignant neoplasm of central portion of left breast in female, estrogen receptor positive (Chronic 07/23/21) Chest pain (Acute) Anxiety Medical History Dysmenorrhea Metrorrhagia Breast cancer Left breast s/p partial mastectomy Surgical History Status post partial mastectomy of left breast Port-A-Cath in place (11/13/21) Insertion Access Port Right Internal Jugular(Right) with fluoroscopy- Michoacano Campuzano MD, FACS 11/13/2021 History of wisdom tooth extraction Family History Father , 83yo Lung cancer Mother No problems noted. Brother Anxiety Depression Son No problems noted. Daughter No problems noted. Other No family history of adverse response to anesthesia Denies family history of Ovarian cancer Breast cancer Colorectal cancer Uterine cancer Social History Smoking Status: Never smoker Second Hand Exposure: No; Do You Dip or Chew Tobacco: No; Hx Alcohol Use: No Hx Substance Use: No Preferred Language: Amharic Communication Ability: Effective Visual Impairment: No Limitations Hearing Ability: Normal Wood Veneer Taper Required: No Beliefs That Will Affect Care: None marital status: Current Living Situation: Spouse and Family Current Living Situation Comment: Lives with and 2 kids current occupational status: employed current occupation: [employer]s [employer] How many Children do You have: 2 Other Information That Helps Us Care for You: No Feels Safe at Home: Yes Safety Concerns: Feels Safe At This Time Diet: regular caffeine: Yes (3 times/week) during the past year weight has: remained stable Assistive Devices: None Review of Systems A total of 10 systems reviewed and were otherwise negative Physical Exam Vital Signs Vital Signs - 24 hr 09/30/24 10:38 09/30/24 10:50 09/30/24 10:50 Temperature 36.5 C Temperature Source Skin Pulse Rate 66 Pulse Rate [Apical] Pulse Rate from SpO2 Sensor Pulse Rhythm [Apical] Pulse Strength [Apical] Respiratory Rate 20 Respiratory Effort / Characteristics Respiratory Depth Respiratory Pattern Blood Pressure 104/54 L 115/70 115/70 Blood Pressure [Right Arm] Blood Pressure Mean 70 84 84 Blood Pressure Mean [Right Arm] Blood Pressure Position [Right Arm] Pulse Oximetry 100 Oxygen Delivery Method Room Air Oxygen Flow Rate Sepsis Recent Fever Within 48 Hours No Sepsis New/Unexplained Change in Mental Status N/A Sepsis Action Taken by Nursing No Action Required 09/30/24 10:50 09/30/24 10:50 09/30/24 10:50 Temperature Temperature Source Pulse Rate Pulse Rate [Apical] Pulse Rate from SpO2 Sensor Pulse Rhythm [Apical] Pulse Strength [Apical] Respiratory Rate Respiratory Effort / Characteristics Respiratory Depth Respiratory Pattern Blood Pressure 115/70 115/70 115/70 Blood Pressure [Right Arm] Blood Pressure Mean 84 84 84 Blood Pressure Mean [Right Arm] Blood Pressure Position [Right Arm] Pulse Oximetry Oxygen Delivery Method Oxygen Flow Rate Sepsis Recent Fever Within 48 Hours Sepsis New/Unexplained Change in Mental Status Sepsis Action Taken by Nursing 09/30/24 10:50 09/30/24 10:50 09/30/24 10:50 Temperature Temperature Source Pulse Rate Pulse Rate [Apical] Pulse Rate from SpO2 Sensor Pulse Rhythm [Apical] Pulse Strength [Apical] Respiratory Rate Respiratory Effort / Characteristics Respiratory Depth Respiratory Pattern Blood Pressure 115/70 115/70 115/70 Blood Pressure [Right Arm] Blood Pressure Mean 84 84 84 Blood Pressure Mean [Right Arm] Blood Pressure Position [Right Arm] Pulse Oximetry Oxygen Delivery Method Oxygen Flow Rate Sepsis Recent Fever Within 48 Hours Sepsis New/Unexplained Change in Mental Status Sepsis Action Taken by Nursing 09/30/24 10:50 09/30/24 10:50 09/30/24 10:50 Temperature Temperature Source Pulse Rate Pulse Rate [Apical] Pulse Rate from SpO2 Sensor Pulse Rhythm [Apical] Pulse Strength [Apical] Respiratory Rate Respiratory Effort / Characteristics Respiratory Depth Respiratory Pattern Blood Pressure 115/70 115/70 115/70 Blood Pressure [Right Arm] Blood Pressure Mean 84 84 84 Blood Pressure Mean [Right Arm] Blood Pressure Position [Right Arm] Pulse Oximetry Oxygen Delivery Method Oxygen Flow Rate Sepsis Recent Fever Within 48 Hours Sepsis New/Unexplained Change in Mental Status Sepsis Action Taken by Nursing 09/30/24 10:50 09/30/24 10:50 09/30/24 10:50 Temperature Temperature Source Pulse Rate Pulse Rate [Apical] Pulse Rate from SpO2 Sensor Pulse Rhythm [Apical] Pulse Strength [Apical] Respiratory Rate Respiratory Effort / Characteristics Respiratory Depth Respiratory Pattern Blood Pressure 115/70 115/70 115/70 Blood Pressure [Right Arm] Blood Pressure Mean 84 84 84 Blood Pressure Mean [Right Arm] Blood Pressure Position [Right Arm] Pulse Oximetry Oxygen Delivery Method Oxygen Flow Rate Sepsis Recent Fever Within 48 Hours Sepsis New/Unexplained Change in Mental Status Sepsis Action Taken by Nursing 09/30/24 10:50 09/30/24 10:50 09/30/24 10:50 Temperature Temperature Source Pulse Rate Pulse Rate [Apical] Pulse Rate from SpO2 Sensor Pulse Rhythm [Apical] Pulse Strength [Apical] Respiratory Rate Respiratory Effort / Characteristics Respiratory Depth Respiratory Pattern Blood Pressure 115/70 115/70 115/70 Blood Pressure [Right Arm] Blood Pressure Mean 84 84 84 Blood Pressure Mean [Right Arm] Blood Pressure Position [Right Arm] Pulse Oximetry Oxygen Delivery Method Oxygen Flow Rate Sepsis Recent Fever Within 48 Hours Sepsis New/Unexplained Change in Mental Status Sepsis Action Taken by Nursing 09/30/24 10:57 09/30/24 11:06 09/30/24 11:48 Temperature Temperature Source Pulse Rate 66 60 65 Pulse Rate [Apical] Pulse Rate from SpO2 Sensor 60 Pulse Rhythm [Apical] Pulse Strength [Apical] Respiratory Rate 18 20 Respiratory Effort / Characteristics Respiratory Depth Respiratory Pattern Blood Pressure Blood Pressure [Right Arm] Blood Pressure Mean Blood Pressure Mean [Right Arm] Blood Pressure Position [Right Arm] Pulse Oximetry 98 99 Oxygen Delivery Method Room Air Oxygen Flow Rate Sepsis Recent Fever Within 48 Hours Sepsis New/Unexplained Change in Mental Status Sepsis Action Taken by Nursing 09/30/24 11:54 09/30/24 12:00 09/30/24 12:21 Temperature Temperature Source Pulse Rate 59 L 63 67 Pulse Rate [Apical] Pulse Rate from SpO2 Sensor 58 L 64 65 Pulse Rhythm [Apical] Pulse Strength [Apical] Respiratory Rate 17 20 21 Respiratory Effort / Characteristics Respiratory Depth Respiratory Pattern Blood Pressure Blood Pressure [Right Arm] Blood Pressure Mean Blood Pressure Mean [Right Arm] Blood Pressure Position [Right Arm] Pulse Oximetry 100 100 100 Oxygen Delivery Method Oxygen Flow Rate Sepsis Recent Fever Within 48 Hours Sepsis New/Unexplained Change in Mental Status Sepsis Action Taken by Nursing 09/30/24 12:36 09/30/24 12:42 09/30/24 12:46 Temperature Temperature Source Pulse Rate 60 61 Pulse Rate [Apical] Pulse Rate from SpO2 Sensor 60 61 Pulse Rhythm [Apical] Pulse Strength [Apical] Respiratory Rate 22 23 Respiratory Effort / Characteristics Respiratory Depth Respiratory Pattern Blood Pressure 115/70 110/80 Blood Pressure [Right Arm] Blood Pressure Mean 85 88 Blood Pressure Mean [Right Arm] Blood Pressure Position [Right Arm] Pulse Oximetry 99 99 Oxygen Delivery Method Oxygen Flow Rate Sepsis Recent Fever Within 48 Hours Sepsis New/Unexplained Change in Mental Status Sepsis Action Taken by Nursing 09/30/24 12:46 09/30/24 12:46 09/30/24 12:46 Temperature Temperature Source Pulse Rate Pulse Rate [Apical] Pulse Rate from SpO2 Sensor Pulse Rhythm [Apical] Pulse Strength [Apical] Respiratory Rate Respiratory Effort / Characteristics Respiratory Depth Respiratory Pattern Blood Pressure 110/80 110/80 110/80 Blood Pressure [Right Arm] Blood Pressure Mean 88 88 88 Blood Pressure Mean [Right Arm] Blood Pressure Position [Right Arm] Pulse Oximetry Oxygen Delivery Method Oxygen Flow Rate Sepsis Recent Fever Within 48 Hours Sepsis New/Unexplained Change in Mental Status Sepsis Action Taken by Nursing 09/30/24 12:51 09/30/24 13:00 09/30/24 13:00 Temperature Temperature Source Pulse Rate 60 Pulse Rate [Apical] Pulse Rate from SpO2 Sensor 59 L Pulse Rhythm [Apical] Pulse Strength [Apical] Respiratory Rate 19 Respiratory Effort / Characteristics Respiratory Depth Respiratory Pattern Blood Pressure 135/80 135/80 Blood Pressure [Right Arm] Blood Pressure Mean 104 104 Blood Pressure Mean [Right Arm] Blood Pressure Position [Right Arm] Pulse Oximetry 99 Oxygen Delivery Method Oxygen Flow Rate Sepsis Recent Fever Within 48 Hours Sepsis New/Unexplained Change in Mental Status Sepsis Action Taken by Nursing 09/30/24 13:00 09/30/24 13:00 09/30/24 13:00 Temperature Temperature Source Pulse Rate Pulse Rate [Apical] Pulse Rate from SpO2 Sensor Pulse Rhythm [Apical] Pulse Strength [Apical] Respiratory Rate Respiratory Effort / Characteristics Respiratory Depth Respiratory Pattern Blood Pressure 135/80 135/80 135/80 Blood Pressure [Right Arm] Blood Pressure Mean 104 104 104 Blood Pressure Mean [Right Arm] Blood Pressure Position [Right Arm] Pulse Oximetry Oxygen Delivery Method Oxygen Flow Rate Sepsis Recent Fever Within 48 Hours Sepsis New/Unexplained Change in Mental Status Sepsis Action Taken by Nursing 09/30/24 13:00 09/30/24 13:00 09/30/24 13:00 Temperature Temperature Source Pulse Rate Pulse Rate [Apical] Pulse Rate from SpO2 Sensor Pulse Rhythm [Apical] Pulse Strength [Apical] Respiratory Rate Respiratory Effort / Characteristics Respiratory Depth Respiratory Pattern Blood Pressure 135/80 135/80 135/80 Blood Pressure [Right Arm] Blood Pressure Mean 104 104 104 Blood Pressure Mean [Right Arm] Blood Pressure Position [Right Arm] Pulse Oximetry Oxygen Delivery Method Oxygen Flow Rate Sepsis Recent Fever Within 48 Hours Sepsis New/Unexplained Change in Mental Status Sepsis Action Taken by Nursing 09/30/24 13:00 09/30/24 13:00 09/30/24 13:00 Temperature Temperature Source Pulse Rate Pulse Rate [Apical] Pulse Rate from SpO2 Sensor Pulse Rhythm [Apical] Pulse Strength [Apical] Respiratory Rate Respiratory Effort / Characteristics Respiratory Depth Respiratory Pattern Blood Pressure 135/80 135/80 135/80 Blood Pressure [Right Arm] Blood Pressure Mean 104 104 104 Blood Pressure Mean [Right Arm] Blood Pressure Position [Right Arm] Pulse Oximetry Oxygen Delivery Method Oxygen Flow Rate Sepsis Recent Fever Within 48 Hours Sepsis New/Unexplained Change in Mental Status Sepsis Action Taken by Nursing 09/30/24 13:00 09/30/24 13:09 09/30/24 13:15 Temperature Temperature Source Pulse Rate 59 L 60 Pulse Rate [Apical] Pulse Rate from SpO2 Sensor 59 L 60 Pulse Rhythm [Apical] Pulse Strength [Apical] Respiratory Rate 19 28 H Respiratory Effort / Characteristics Respiratory Depth Respiratory Pattern Blood Pressure 135/80 Blood Pressure [Right Arm] Blood Pressure Mean 104 Blood Pressure Mean [Right Arm] Blood Pressure Position [Right Arm] Pulse Oximetry 99 99 Oxygen Delivery Method Oxygen Flow Rate Sepsis Recent Fever Within 48 Hours Sepsis New/Unexplained Change in Mental Status Sepsis Action Taken by Nursing 09/30/24 13:21 09/30/24 13:30 09/30/24 13:30 Temperature Temperature Source Pulse Rate 61 Pulse Rate [Apical] Pulse Rate from SpO2 Sensor 61 Pulse Rhythm [Apical] Pulse Strength [Apical] Respiratory Rate 33 H Respiratory Effort / Characteristics Respiratory Depth Respiratory Pattern Blood Pressure 143/80 H 143/80 H Blood Pressure [Right Arm] Blood Pressure Mean 117 117 Blood Pressure Mean [Right Arm] Blood Pressure Position [Right Arm] Pulse Oximetry 100 Oxygen Delivery Method Oxygen Flow Rate Sepsis Recent Fever Within 48 Hours Sepsis New/Unexplained Change in Mental Status Sepsis Action Taken by Nursing 09/30/24 13:30 09/30/24 13:30 09/30/24 13:30 Temperature Temperature Source Pulse Rate Pulse Rate [Apical] Pulse Rate from SpO2 Sensor Pulse Rhythm [Apical] Pulse Strength [Apical] Respiratory Rate Respiratory Effort / Characteristics Respiratory Depth Respiratory Pattern Blood Pressure 143/80 H 143/80 H 143/80 H Blood Pressure [Right Arm] Blood Pressure Mean 117 117 117 Blood Pressure Mean [Right Arm] Blood Pressure Position [Right Arm] Pulse Oximetry Oxygen Delivery Method Oxygen Flow Rate Sepsis Recent Fever Within 48 Hours Sepsis New/Unexplained Change in Mental Status Sepsis Action Taken by Nursing 09/30/24 13:30 09/30/24 13:30 09/30/24 13:30 Temperature Temperature Source Pulse Rate Pulse Rate [Apical] Pulse Rate from SpO2 Sensor Pulse Rhythm [Apical] Pulse Strength [Apical] Respiratory Rate Respiratory Effort / Characteristics Respiratory Depth Respiratory Pattern Blood Pressure 143/80 H 143/80 H 143/80 H Blood Pressure [Right Arm] Blood Pressure Mean 117 117 117 Blood Pressure Mean [Right Arm] Blood Pressure Position [Right Arm] Pulse Oximetry Oxygen Delivery Method Oxygen Flow Rate Sepsis Recent Fever Within 48 Hours Sepsis New/Unexplained Change in Mental Status Sepsis Action Taken by Nursing 09/30/24 13:39 09/30/24 13:42 09/30/24 14:00 Temperature Temperature Source Pulse Rate 61 60 Pulse Rate [Apical] Pulse Rate from SpO2 Sensor 61 60 Pulse Rhythm [Apical] Pulse Strength [Apical] Respiratory Rate 27 H 21 Respiratory Effort / Characteristics Respiratory Depth Respiratory Pattern Blood Pressure 134/76 Blood Pressure [Right Arm] Blood Pressure Mean 91 Blood Pressure Mean [Right Arm] Blood Pressure Position [Right Arm] Pulse Oximetry 98 99 Oxygen Delivery Method Oxygen Flow Rate Sepsis Recent Fever Within 48 Hours Sepsis New/Unexplained Change in Mental Status Sepsis Action Taken by Nursing 09/30/24 14:00 09/30/24 14:00 09/30/24 14:00 Temperature Temperature Source Pulse Rate Pulse Rate [Apical] Pulse Rate from SpO2 Sensor Pulse Rhythm [Apical] Pulse Strength [Apical] Respiratory Rate Respiratory Effort / Characteristics Respiratory Depth Respiratory Pattern Blood Pressure 134/76 134/76 134/76 Blood Pressure [Right Arm] Blood Pressure Mean 91 91 91 Blood Pressure Mean [Right Arm] Blood Pressure Position [Right Arm] Pulse Oximetry Oxygen Delivery Method Oxygen Flow Rate Sepsis Recent Fever Within 48 Hours Sepsis New/Unexplained Change in Mental Status Sepsis Action Taken by Nursing 09/30/24 14:00 09/30/24 14:00 09/30/24 14:00 Temperature Temperature Source Pulse Rate Pulse Rate [Apical] Pulse Rate from SpO2 Sensor Pulse Rhythm [Apical] Pulse Strength [Apical] Respiratory Rate Respiratory Effort / Characteristics Respiratory Depth Respiratory Pattern Blood Pressure 134/76 134/76 134/76 Blood Pressure [Right Arm] Blood Pressure Mean 91 91 91 Blood Pressure Mean [Right Arm] Blood Pressure Position [Right Arm] Pulse Oximetry Oxygen Delivery Method Oxygen Flow Rate Sepsis Recent Fever Within 48 Hours Sepsis New/Unexplained Change in Mental Status Sepsis Action Taken by Nursing 09/30/24 14:00 09/30/24 14:00 09/30/24 14:00 Temperature Temperature Source Pulse Rate Pulse Rate [Apical] Pulse Rate from SpO2 Sensor Pulse Rhythm [Apical] Pulse Strength [Apical] Respiratory Rate Respiratory Effort / Characteristics Respiratory Depth Respiratory Pattern Blood Pressure 134/76 134/76 134/76 Blood Pressure [Right Arm] Blood Pressure Mean 91 91 91 Blood Pressure Mean [Right Arm] Blood Pressure Position [Right Arm] Pulse Oximetry Oxygen Delivery Method Oxygen Flow Rate Sepsis Recent Fever Within 48 Hours Sepsis New/Unexplained Change in Mental Status Sepsis Action Taken by Nursing 09/30/24 14:00 09/30/24 14:00 09/30/24 14:00 Temperature Temperature Source Pulse Rate Pulse Rate [Apical] Pulse Rate from SpO2 Sensor Pulse Rhythm [Apical] Pulse Strength [Apical] Respiratory Rate Respiratory Effort / Characteristics Respiratory Depth Respiratory Pattern Blood Pressure 134/76 134/76 134/76 Blood Pressure [Right Arm] Blood Pressure Mean 91 91 91 Blood Pressure Mean [Right Arm] Blood Pressure Position [Right Arm] Pulse Oximetry Oxygen Delivery Method Oxygen Flow Rate Sepsis Recent Fever Within 48 Hours Sepsis New/Unexplained Change in Mental Status Sepsis Action Taken by Nursing 09/30/24 14:00 09/30/24 14:00 09/30/24 16:00 Temperature Temperature Source Pulse Rate 63 Pulse Rate [Apical] 67 Pulse Rate from SpO2 Sensor 62 Pulse Rhythm [Apical] Pulse Strength [Apical] Respiratory Rate 13 19 Respiratory Effort / Characteristics Non-Labored Spontaneous Respiratory Depth Normal Respiratory Pattern Regular Blood Pressure 134/76 Blood Pressure [Right Arm] 143/79 H Blood Pressure Mean 91 Blood Pressure Mean [Right Arm] 100 Blood Pressure Position [Right Arm] Pulse Oximetry 97 98 Oxygen Delivery Method Room Air Oxygen Flow Rate Sepsis Recent Fever Within 48 Hours Sepsis New/Unexplained Change in Mental Status Sepsis Action Taken by Nursing 09/30/24 17:45 Temperature 36.1 C L Temperature Source Temporal Artery Scan Pulse Rate Pulse Rate [Apical] 79 Pulse Rate from SpO2 Sensor Pulse Rhythm [Apical] Regular Pulse Strength [Apical] Normal Respiratory Rate 16 Respiratory Effort / Characteristics Non-Labored Spontaneous Respiratory Depth Normal Respiratory Pattern Regular Blood Pressure Blood Pressure [Right Arm] 132/60 Blood Pressure Mean Blood Pressure Mean [Right Arm] 84 Blood Pressure Position [Right Arm] Semi-fowlers Pulse Oximetry 100 Oxygen Delivery Method Oxymask Oxygen Flow Rate 6 Sepsis Recent Fever Within 48 Hours Sepsis New/Unexplained Change in Mental Status Sepsis Action Taken by Nursing General: Well-developed, well-nourished, middle-aged female, in no acute distress. Obvious discomfort. Sitting on a bed. Alert and oriented. Skin: Warm and dry with good turgor. No rashes. No ecchymosis or peripheral edema. Heart: Heart RRR. No MGR. There is no discomfort with palpation over the sternum or the sternal costal junctions. Peripheral pulses are 2+. Lungs: Lungs are clear to auscultation. No crackles rhonchi or wheezing. Good air movement. The patient is able to take a deep breath. Abdomen: Abdomen was inspected, auscultated, and palpated. mildly obese. Bowel sounds present x 4. Soft, epigastric and right upper quadrant tenderness to palpation. No hepato-splenomegaly. No masses noted. No rebound. No pain over McBurney's point. No CVA tenderness. Musculoskeletal: Gross motor function of the upper and lower extremities is intact and unremarkable. Neurologic: Gross sensation is intact across the upper and lower extremities by soft touch. Course Administered Medications Discontinued Medications Bupivacaine HCl/Epinephrine Bitart (Bupivacaine/Epinephrine 0.25% 1:200,000 30 Ml Vial) Confirm Administered Dose 30 ml .ROUTE .[facility] Stop: 09/30/24 16:34 Last Admin: 09/30/24 17:33 Dose: 30 ml Documented By: RODOLFO Fentanyl Citrate (Fentanyl Citrate Pf 100 Mcg/2 Ml Vial) 25 mcg IV Q5M PRN PRN Reason: PACU Use Only-Pain Stop: 10/01/24 00:41 Last Admin: 09/30/24 18:05 Dose: 25 mcg Documented By: Admin: 09/30/24 18:00 Dose: 25 mcg Documented By: Admin: 09/30/24 17:55 Dose: 25 mcg Documented By: Admin: 09/30/24 17:50 Dose: 25 mcg Documented By: RINKU Cefoxitin Sodium 2,000 mg/ (Dextrose) 50 mls @ 100 mls/hr IV ONCE ONE; Protocol Stop: 09/30/24 18:01 Last Infusion: 09/30/24 18:32 Dose: Infused Documented By: Admin: 09/30/24 17:01 Dose: 100 mls/hr Documented By: SHAMAR Ketorolac Tromethamine (Ketorolac Tromethamine 15 Mg/Ml Vial) 10 mg IV NOW ONE Stop: 09/30/24 13:42 Last Admin: 09/30/24 13:49 Dose: 10 mg Documented By: JOSE G Ondansetron HCl (Ondansetron Inj 2 Mg/Ml 2 Ml Vial) 4 mg IV NOW STA Stop: 09/30/24 11:10 Last Admin: 09/30/24 11:48 Dose: 4 mg Documented By: JOSE G Medical Decision Making Differential Diagnosis Acute cholecystitis, cholelithiasis, pancreatitis, bowel obstruction, gastritis, ACS, muscle strain, viral illness Medical Records Attestation: I reviewed the patient's medical records. Home Medications Current Medication List: was personally reviewed by me Laboratory Data CBC obtained today shows a white count of 8.63. H&H of 11.7 and 35.6. Normal platelets. Chemistry panel obtained today shows normal potassium and sodium. Normal carbon dioxide. Normal BUN and creatinine. Glucose is mildly elevated at 126. PT/INR normal. Total bilirubin is normal at 0.5. AST is significantly elevated at 98. ALT is normal at 38. Troponin is normal at less than 2.3. Lipase is normal at 34. UA obtained today shows concentrated urine with trace protein and trace ketones. All other values were normal. 09/30/24 11:45 09/30/24 11:45 Lab Results 09/30/24 09/30/24 Range/Units 11:45 12:10 WBC 8.63 (4.8-10.8) K/ul RBC 4.10 L (4.20-5.40) M/uL Hgb 11.7 L (12.0-16.0) g/dl Hct 35.6 L (37.0-47.0) % MCV 86.8 (80.0-100.0) fL MCH 28.5 (25.0-34.0) pg MCHC 32.9 (32.0-36.0) g/dL RDW Std Deviation 42.5 (36.4-46.3) fL RDW Coeff of Fredis 13.4 (11.5-14.5) % Plt Count 254 (130-400) K/uL MPV 9.5 (9.4-12.4) fL Immature Gran % (Auto) 0.2 % Neut % (Auto) 62.6 % Lymph % (Auto) 26.8 % [place] % (Auto) 8.5 % Eos % (Auto) 1.4 % Baso % (Auto) 0.5 % Neut # (Auto) 5.41 (1.40-6.50) K/uL Lymph # (Auto) 2.31 (1.20-3.40) K/uL [place] # (Auto) 0.73 H (0.11-0.59) K/uL Eos # (Auto) 0.12 (0.00-0.50) K/uL Baso # (Auto) 0.04 (0.00-0.20) K/uL Immature Gran # (Auto) 0.02 (0.01-0.20) K/uL PT 10.0 (9.0-12.0) Seconds INR 0.9 (0.9-1.1) Sodium 140 (136-145) mmol/L Potassium 3.7 (3.5-5.1) mmol/L Chloride 108 H (98-107) mmol/L Carbon Dioxide 29 (21-32) mmol/L Anion Gap 3 (3-11) BUN 22 (6-23) mg/dl Creatinine 0.68 (0.6-1.2) mg/dl Est Cr Clr Drug Dosing 101.6 ml/min eGFR 108.03 BUN/Creatinine Ratio 32.4 H (10-20) Glucose 126 H (70-99(Fasting)) mg/dl Calcium 8.7 (8.6-10.3) mg/dl Total Bilirubin 0.5 (0.2-1.0) mg/dl AST 98 H (13-39) U/L ALT 38 (7-52) U/L Alkaline Phosphatase 61 (34-104) U/L Troponin I High Sens < 2.3 (0-14) pg/ml Total Protein 6.5 (6.0-8.3) gm/dl Albumin 3.8 (3.4-5.0) gm/dl Globulin 2.7 (2.5-4.0) gm/dl Albumin/Globulin Ratio 1.4 (0.9-2) Lipase 34 (11-82) U/L Urine Color Dark Yellow Urine Appearance Clear (Clear) Urine pH 5.5 (4.5-7.5) Ur Specific [place] 1.029 (1.000-1.030) Urine Protein Trace H (Negative) Urine Glucose (UA) Negative (Negative) Urine Ketones Trace H (Negative) Urine Blood Negative (Negative) Urine Nitrite Negative (Negative) Urine Bilirubin Negative (Negative) Urine Urobilinogen Negative (Negative) Ur Leukocyte Esterase Negative (Negative) Urine WBC (Auto) 0-5 (0-5) /hpf Urine RBC (Auto) 0-2 (0-2) /hpf U Hyaline Cast (Auto) 0-2 (0-2) /lpf U Epithel Cells (Auto) 0-2 (0-2) /hpf Urine Bacteria (Auto) None Seen (None Seen) Urine Test Negative (Negative) Imaging Data My Impression: Chest x-ray obtained today with an abdominal series was interpreted by me and read by radiology. No evidence of obstruction or free air. No calcifications. No pneumothorax or pleural effusion. There is hepatomegaly with the liver measuring 22 cm. Gallbladder ultrasound obtained today was also reviewed by me and read by radiology. She has evidence of cholecystitis with biliary sludge and gallbladder distention. Trace pericholecystic fluid. There is gallbladder wall thickening and positive sonographic Chinchilla sign. Radiologist's Impression: Chest/Abdomen X-ray 09/30/24 11:09 HISTORY: Epigastric pain. TECHNIQUE: Acute abdominal series radiographs including PA radiograph of the chest and upright and supine AP abdominal radiographs. 4 views are provided. COMPARISON: Chest radiograph dated 11/13/2021. FINDINGS: Right chest Mediport with catheter tip overlying the SVC. Lungs are clear. No pneumothorax or pleural effusion. Normal heart size. Left-sided aortic arch. Midline trachea. Postsurgical changes of the left chest wall. No acute osseous abnormality. Gas within nondilated colon and small bowel. No obvious free air or pneumatosis. No suspicious calcifications. Hepatomegaly with the liver measuring 22 cm in craniocaudal dimension. Mild degenerative changes of the spine. Mild S-shaped thoracolumbar scoliosis. IMPRESSION: 1. No acute cardiopulmonary findings. 2. No acute abdominal findings. 3. Hepatomegaly with the liver measuring 22 cm in craniocaudal dimension. Electronically signed by Elieser Key 09-30-2024 12:39 PM Gallbladder Ultrasound 09/30/24 13:19 HISTORY: Right upper quadrant pain. Nausea. TECHNIQUE: Right upper quadrant abdominal ultrasound evaluation. COMPARISON: None. FINDINGS: The visible portion of the pancreatic head and proximal body is unremarkable. Distal body and tail of the pancreas is obscured by bowel gas shadowing. The liver is mildly enlarged measuring 19.1 cm in length. Increased liver echogenicity consistent with hepatic steatosis. The gallbladder is mildly distended. Sludge is present in the gallbladder lumen. Borderline gallbladder wall thickening measuring 0.3 cm in thickness. Possible positive sonographic Chinchilla sign. Trace pericholecystic fluid. The visible proximal common duct is normal in caliber measuring 0.7 cm. The right kidney demonstrates normal cortical echogenicity. No hydronephrosis. IMPRESSION: * Findings suspicious for cholecystitis. Biliary sludge with gallbladder distention, trace pericholecystic fluid, and borderline gallbladder wall thickening measuring up to 0.3 cm.Possible positive sonographic Chinchilla sign. If clinically uncertain, consider correlation with nuclear medicine HIDA scan. * Hepatomegaly and hepatic steatosis. * Additional findings and/or limitations as detailed above. Electronically signed by Elieser Key 09-30-2024 2:46 PM ECG Data Additional Comments: EKG obtained today shows a normal sinus rhythm with a rate of 65. No acute ST or T wave changes are present. This was reviewed with Dr. Hernandez. Blood Pressure Blood Pressure Findings: Elevated blood pressure Blood Pressure Disposition: elevated BP felt to be situational MDM Narrative The patient was evaluated in room C11. Conservative care measures were discussed. IV was established. Labs were obtained. She was placed on a industrial maintenance electrician and remained in a normal sinus rhythm with a rate in the low 60s. EKG was normal. CBC was unremarkable. Chemistry panel shows an elevated AST. Possibility that this is related to her Nerlynx was discussed with the patient. Literature shows a 10% incidence of stopping the medication secondary to elevated AST. The patient was given Zofran 4 mg IV with mild improvement in her nausea. Her abdominal pain continued. She was given Toradol 10 mg IV with significant improvement in her pain. Because of her continued right upper quadrant discomfort, gallbladder ultrasound was obtained. This was positive for cholecystitis. Consultation was was obtained from Dr. Sd Zavala, general surgery. He came to the ED to evaluate the patient. Please see his dictation for final management. She will be taken to the OR for cholecystectomy. The patient remained stable while in the ED. Care plan was discussed with Dr. Hernandez. Impression & Plan Acute cholecystitis the patient will be taken to the OR today for laparoscopic cholecystectomy. While here elevated AST may be related to her acute cholecystitis, the possibility remains that it is related to her use of Nerlynx, especially in conjunction with her hepatomegaly. I have asked that she speak with her oncologist regarding this medication and potential side effects. The patient will be admitted to the surgical service. Discharge Plan Visit Data Chief Complaint: Abdominal Pain Stated Complaint: ABD/BACK PAIN ED Provider: Lona Hernandez ED Midlevel Provider: Devendra Tena Discharge Problem: Acute cholecystitis Patient Disposition: Admitted As Inpatient Discharge Instructions Interventions: ED Discharge Assessment Last Done: 09/30/24 16:27
[2024-09-30] MEDS: ONDANSETRON INJ 2 MG/ML 2 ML VIAL IV STA (11:48)
--- OUTSIDE RECORDS SUMMARY | 2024-09-30 11:56 | External Medical Summary | Summary of Care ---
Author Name Unknown Organization [facility] Address [address] [place] [address] Phone [phone] Care Team Providers Care Senior Mortgage Loan Processor Name Role Phone Rylan Escobar MD Primary Care Provider [phone] Reason for Visit * Reason Comments Outpatient Testing Encounter Details Date Type Department Care Team ([facility] Contact Info) Description 08/15/2024 9:00 AM EST Laboratory Laboratory, [facility] [address] [place] [address] [facility] [address] [place] [address] Arrived Allergies Active Allergy Reactions Criticality Noted Date Comments Pollen Low 12/02/2023 Rhinitis documented as of this encounter (statuses as of 08/15/2024) Medications Tamoxifen Citrate 20 MG Oral Tablet 1 Tablet. 2 Active [place]-3 Fish Oil 1000 MG Oral Capsule ([place]-3) 1 Capsule. 2 Active Multivitamin Adult Extra C Oral Tablet Chewable 1 Tablet. 2 Active Probiotic & Acidophilus Ex St Oral Capsule Probiotics Oral daily active Active Nerlynx 40 MG Oral Tablet Start: 02/15/24 10:41:00 AM EDT, 180 each, 0 Refill(s) 4 Active Benzonatate 100 MG Oral Capsule (Tessalon Perlkimberly)Indicatio ns:Sinobronchiti s Take 1 Capsule by mouth 3 times a day as needed for Cough. Do not cut, crush, or chew. 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 Prediabetes 12/15/2021 Overview: Per Prediabetes protocol Invasive ductal carcinoma of breast, female, lef t 12/05/2021 Depression with anxiety 08/03/2021 Obesity, Class I, BMI 30.0-34.9 (see actual BMI) 01/18/2012 documented as of this encounter (statuses as of 08/15/2024) Resolved Problems Problem Noted Date Diagnosed Date Resolved Date Pre-invasive breast cancer, left 08/03/2021 12/05/2021 Bronchitis 06/01/2018 10/22/2018 Allergic conjunctivitis 12/05/201510/03 Allergic rhinitis 01/09/2013 10/19/2020 Spasm of muscle 09/07/2011 12/06/2017 Folliculitis 12/09/2010 12/06/2017 Supervision of other high-risk 12/09/2010 03/14/2013 Overview (10/08/2015): ICD-10 update of inactive term Abnormal chromosomal analysis 12/09/2010 10/22/2020 Backache 08/07/2009 12/06/2017 documented as of this encounter (statuses as of 08/15/2024) Immunizations Name Administration Dates Next Due COVID-19 mRNA, LNP-s, No Pre serve, 2-Dose Series (Moderna) 10/12/2020,09/21/2020 Seasonal Influenza Vac., MDV , IM, 0.5 mL (Fluzone) 05/29/2014,03/22/2013,06/02/2012 Seasonal Influenza, PF, 6 M & above, IM , (FluLaval or Fluzone) 05/12/2023,05/06/2022,03/21/2021, 020,06/12/2019,04/28/2018,04/14/2017 Seasonal Influenza, Quadriva lent, No Preserve, IM 06/06/2015 TDAP (age 10 and older)(Boostrix) 01/21/2015 TDAP, Age 7 and older, IM (Adacel) 01/18/2007 documented as of this encounter Social History Tobacco Use Types Packs/Day Years Used Date Smoking Tobacco: Never Smokeless Tobacco: Never Comments:no passive smoke Alcohol Use Standard Drinks/Week Comments No 0 (1 standard drink = 0.6 oz pur e alcohol) PHQ-2 Answer Date Recorded PHQ Adult Total Score 0 10/22/2020 Hunger Vital Sign Answer Date Recorded Worried About Running Out of Food in the Last Ye ar Never true 09/02/2019 Ran Out of Food in the Last Year Never true 09/02/2019 Comments No Sex and Gender Information Value Date Recorded Sex Assigned at Not on file Legal Sex Female 6:42 AM EST Gender Identity Not on file Sexual Orientation Not on file Occupation Industry Job Start Date Job End Date homemaker Not on file Not on file Not on file documented as of this encounter Plan of Treatment Upcoming Encounters Date Type Department Care Team (Late st Contact Info) Description 11/22/2024 10:40 AM EDT Office Visit Family Practice [facility] [address] [id number] Rylan Escobar MD [address] [phone] Scheduled Procedures Name Priority Associated Diagnoses Date/Ti me COLONOSCOPY FLEXIBLE PROXIMAL DIAGNOSTIC Recall History of colon polyps Health Maintenance Due Date Last Done Comments Hepatitis B Vaccine (1 of 3 - 19+ 3-dose series) 12/22/1995 Pneumococcal Vaccine: Pediatrics (0 to 5 Years) and At-Risk Patients (6 to 18 Years and 19+ Years) (1 of 2 - PCV) 12/22/1995 COVID-19 Vaccine (3 - Moderna risk series) 07/09/2021 06/11/2021, 10/12/2020, 10/12/2020, Additional history exists Depression Monitoring 10/22/2021 10/22/2020 Cologuard 2021 Fecal Occult Blood Test 2021 Sigmoidoscopy 2021 Pap Smear 07/12/2022 07/12/2019, 08/2018, 08/02/2017, Additional history exists Influenza Vaccine (FLU shot) (#1) 2024 05/12/2023, 05/06/2022, 03/21/2021, Additional history exists Mammogram 06/14/2024 06/14/2023, 06/04, 07/24/2022, Additional history exists HbA1c 11/21/2024 11/22/2023, 11/02, 12/05/2021, Additional history exists DTap/Tdap Vaccines (3 - Td or Tdap) 01/21/2025 01/21/2015, 01/18/2007 Lipid Panel 10/22/2025 10/22/2020, 03/2019, 04/28/2018, Additional history exists Colonoscopy 11/21/2027 11/20/2022, 11/02, 06/05/2020, Additional history exists Colorectal Cancer Screening 11/21/2027 Cervical Cancer Screening 08/09/2028 HPV/Co-Test 08/09/2028 08/09/2023, 07/06, 07/22/2021 RETIRED - COLONOSCOPY-EVERY 5 YRS AGES 18-100 Discontinued 11/20/2022, 11/20/2022, 06/05/2020, Additional history exists HPV (Gardasil) Vaccine Aged Out No lo nger eligible based on patient's age to complete this topic MENINGOCOCCAL (MENACTRA/MENVEO) Aged Out No longer eligible based on patient's age to complete this topic documented as of this encounter Medical Devices Not on filedocumented as of this encounter Care Teams Senior Mortgage Loan Processor Relationship Specialty Start Date End Date Rylan Escobar MD [address] [place] [id number] PCP - General Family Medicine 10/19/20 documented as of this encounter
--- OUTSIDE RECORDS SUMMARY | 2024-09-30 11:56 | External Medical Summary | Continuity of Care Document ---
Author Name Unknown Organization [facility] [address] [place] [place] [address] [place] [id number] Care Team Providers Care Print Line Supervisor Name Role Phone Rylan Escobar Primary Care Physician [phone] [facility]counter [id number] Date(s): 09/14/24 - 09/14/24 [facility] [address] [facility] [address] [facility], [address], Entr[address] [place] [address] [phone] Discharge Disposition: Home or Self Care Attending Physician: MD Rodriguez Kristine L Referring Physician: MD Escobar Anthony J Encounter Type: [facility] [place] Allergies, Adverse Reactions, Alerts No Known Allergies Medications Centrum Silver Start: 09/04/21 10:12:00 AM EST, See Instructions, 1 tab PO takes occassionally Start Date: 09/04/21 Status: Ordered Repeat number: 1 Nerlynx 40 mg oral tablet Start: 02/15/24 10:41:00 AM EDT, 180 each, 0 Refill(s) Start Date: 02/15/24 Status: Ordered Repeat number: 1 Ranger-3 Fish Oil Start: 09/04/21 10:11:00 AM EST, 1,000 mg =, PO, Daily Start Date: 09/04/21 Status: Ordered Repeat number: 1 Probiotic Formula Start: 08/01/24 1:33:00 PM EST, 1 cap, PO Start Date: 08/01/24 Status: Ordered Repeat number: 1 tamoxifen 20 mg oral tablet Start: 03/26/22 2:27:00 PM EDT, 1 tab, PO, Daily, 30 each Start Date: 03/26/22 Status: Ordered Repeat number: 1 Problem List Condition Confirmation Course Effective Dates Status Health St atus Informant 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/21 Active COVID-19 vaccine series completed Confirmed Active Malignant neoplasm of left breast Confirmed Active Mixed anxiety and depressive disorder Confirmed 08/03/21 Active Obese class I Confirmed 01/18/12 Active Heart palpitations Confirmed Active Sleep apnea 1 Confirmed Active 1prescribed nocturanl CPAP but does not use Procedures Procedure Date Related Diagnosis Body Site Status MRI of bilateral breasts 01/22/22 Completed Echocardiography for detecti ng cardiac output 01/19/22 Completed MRI of bilateral breasts 01/2022 Completed Partial mastectomy of left breast 1 09/08/21 Completed Colonoscopy 06/05/20 Completed 1with SNBX Results Radiology Reports * Exam Date Time Procedure Performing Provider Status 09/14/24 11:59 AM MG. Mammo Digital Screening Bilateral Jenn Mead; Final Notes: (MG. Mammo Digital Screening Bilateral) Reason For Exam: left breast canc Report Bilateral Screening Mammogram HISTORY: Patient is 48 years old and is seen for 3D screening, asymptomatic. Patient history: The patient has no personal history of breast cancer. Left needle biopsy in July, - invasive ductal carcinoma. There is no family history of breast cancer. COMPARISON: The present examination has been compared to prior imaging studies performed at [facility] on 09/04/2021, and at [facility] on 07/23/2021. BILATERAL MAMMOGRAM FINDINGS: The following views were obtained: bilateral CC with tomosynthesis; bilateral MLO with tomosynthesis; and left XCCL with tomosynthesis. The breasts are heterogeneously dense, which may obscure small masses. There are post lumpectomy changes seen in the left breast. Finding remains unchanged from the priorstudy. In the right breast, no significant masses, suspicious calcifications or other abnormalities are seen. IMPRESSION: There is no mammographic evidence of malignancy. Routine screening mammogram in 1 year is recommended. BI-RADS Category 2: BENIGN RISK: Patient has a history of breast cancer. This breast cancer risk assessment tool uses medical and reproductive history and the history of breast cancer among first-degree relatives (mother, sisters, daughters) to estimate lifetime breast cancer risk. This tool does not incorporate other known risks for breast cancer (prior history of LCIS; known mutations for breast cancer; family risk factors beyond first degree relatives; prior chest wall radiation; breast density etc). WORKSTATION ID: [id number] Final Dictated by:MD Scott Emel K Dictated DT/TM:09/14/2024 12:09 Signed by:MD Scott Emel K Signed (Electronic Signature):09/14/2024 12:09 Social History Social History Type Response Smoking Status Never smoked cigaret agnes Sex Female Sex Representation Female (finding) Patient Care team information Care Team Personnel Name: MD Shawn, Rylan Barahona Position: Referring DIRECT Member Role: Primary Care Provider Address: [facility] [address] [place] [address] Telecom: [phone] Name: MD Jennifer, Fely Dennis Position: Physician - Surgery Oncology Member Role: Lifetime Relationship [address]: [address] [place] [address] [address] [place] [address] [place] Telecom: [phone] Care Team Related Persons Name: GERMAIN JUAREZ Insurance Providers Guarantor name: KVNG MORRIS Health Plan Information #: 1 Payer: [email or web address] Member Number: [id number] Policy Number: NA Group Number: [id number] Health Plan Information #: 2 Payer: [employer] Member Number: [id number] Policy Number: NA Group Number: NA Health Plan Information #: 3 Payer: [employer] Member Number: NA Policy Number: NA Group Number: NA
--- OUTSIDE RECORDS SUMMARY | 2024-09-30 11:56 | External Medical Summary | Summary of Care ---
Author Name Unknown Organization [facility] Address [address] [place] [address] Phone [phone] Care Team Providers Care Leather Coater Name Role Phone Rylan Escobar MD Primary Care Provider [phone] Reason for Referral * Precert (Within 24 hrs (call dept; emergent)) - Authorized Specialty Diagnoses / Procedures Referred By Contac t Referred To Contact Radiology Diagnoses Worst headache of life Procedures CT HEAD/BRAIN W WO CONTRAST Shelbi Avila CRNP [address] [place] [address] Phone: tel: fax: Referral ID Status Reason Start Date Expiration Date V isits Requested Visits Authorized [id number] Authorized 08/15/2024 [id number] Reason for Visit * Reason Comments Acute Patient presents in office today for concerns with DOYLE (located in the R side) since about roughly Wednesday night into Wednesday all day.Patient did not take anything for the headache. Encounter Details Date Type Department Care Team (Late Contact Info) Description 08/15/2024 8:40 AM EST Office Visit Family Practice [facility] [address] [place] [address] Shelbi Avila CRNP [address] [place] [id number] Worst headache of life*; Invasive ductal carcinoma of breast, female, left (HCC); Genetic defect Allergies Active Allergy Reactions Criticality Noted Date Comments Pollen Low 12/02/2023 Rhinitis documented as of this encounter (statuses as of 08/15/2024) Medications Tamoxifen Citrate 20 MG Oral Tablet 1 Tablet. 2 Active [place]-3 Fish Oil 1000 MG Oral Capsule ([place]-3) 1 Capsule. 2 Active Multivitamin Adult Extra C Oral Tablet Chewable 1 Tablet. 2 Active Probiotic & Acidophilus Ex St Oral Capsule Probiotics Oral daily active Active Nerlynx 40 MG Oral Tablet Start: 02/15/24 10:41:00 AM EDT, 180 each, 0 Refill(s) 4 Active Benzonatate 100 MG Oral Capsule (Tessally Keita)Indicatio ns:Sinobronchiti s Take 1 Capsule by mouth 3 times a day as needed for Cough. Do not cut, crush, or chew. 50 Capsule 1 4 Active Zepbound 5 MG/0.5ML Subcutaneous Solution Auto-injector (Azael t Management)Indic ations:Class 1 obesity due to excess calories without serious comorbidity with body mass index (BMI) of 33.0 to 33.9 in adult Inject 5 mg under the skin once a week. 2 mL 5 4 025 Discontin ued(Medic ation List Clean Up) documented as of this encounter (statuses as [...] on file documented as of this encounter Last Filed Vital Signs Vital Sign Reading Time Taken Comments Blood Pressure 114/76 08/15/2024 8:59 AM EST Pulse 57 08/15/2024 8:59 AM EST Temperature - - Respiratory Rate 16 08/15/2024 8:59 AM EST Oxygen Saturation 96% 08/15/2024 8:59 AM EST Inhaled Oxygen Concentration - - Weight - - Height - - Body Mass Index - - documented in this encounter Progress Notes * Shelbi Avila CRNP - 08/15/2024 8:58 AM EST Acute Family Medicine Visit CC: Chief Complaint Patient presents with Acute Patient presents in office today for concerns with DOYLE (located in the R side) since about roughly Wednesday night into Wednesday all day. Patient did not take anything for the headache. History of Present Illness: Asad Reed is a 48 year old female presenting with her SO today with complaints right sided headache. Feels like a pinching The pain started Sat into Wednesday. Denies nausea, vomiting, light or sound sensitivity. [place] off balance last week. She did not take anything for this headache and reports that his went away yesterday. No testing for covid Social History Socioeconomic History Marital status: Spouse name: Oscar Number of children: 1 Years of education: Not on file Highest education level: Not on file Occupational History Occupation: homemaker Tobacco Use Smoking status: Never Smokeless tobacco: Never Tobacco comments: no passive smoke Vaping Use Vaping status: Never Used Substance and Sexual Activity Alcohol use: No Drug use: No Sexual activity: Yes Partners: Male Comment: . IUD 11/14 [employer]ag[employer] Other Topics Concern Not on file Social History Narrative Not on file Social Needs Financial Resource Strain: Not on file Food Insecurity: No Food Insecurity (09/02/2019) Hunger Vital Sign Worried About Running Out of Food in the Last Year: Never true Ran Out of Food in the Last Year: Never true Transportation Needs: Not on file Social Connections: Not on file Housing Stability: Not on file PMH: Past Medical History: Diagnosis Date ABN CHROMOSONE ANALYSIS 12/09/2010 Allergic rhinitis 01/09/2013 BACKACHE NOS 08/07/2009 Depression with anxiety 08/03/2021 Invasive ductal carcinoma of breast, female, left (HCC) 12/05/2021 Obesity, Class I, BMI 30.0-34.9 (see actual BMI) 01/18/2012 Pre-invasive breast cancer, left 08/03/2021 Past Surgical History: Procedure Laterality Date COLONOSCOPY, DIAGNOSTIC (RECTUM) 06/05/2020 adenomatous polyp, repeat 5 yrs / COLONOSCOPY FLEXIBLE PROXIMAL DIAGNOSTIC performed by Devonte Munguia MD at [facility] COLONOSCOPY, DIAGNOSTIC (RECTUM) 11/20/2022 benign adenomatous polyp, repeat 5 yrs / COLONOSCOPY FLEXIBLE PROXIMAL DIAGNOSTIC performed by Devonte Munguia MD at [facility] EGD, FLEXIBLE, DIAGNOSTIC 03/13/2016 eso ulcer, repeat 6 wks/ESOPHAGOGASTRODUODENOSCOPY (EGD), FLEXIBLE, TRANSORAL, DIAGNOSTIC performedby Ej Cueto DO at [facility] EGD, FLEXIBLE, DIAGNOSTIC 05/19/2016 normal/ESOPHAGOGASTRODUODENOSCOPY (EGD), FLEXIBLE, TRANSORAL, DIAGNOSTIC performed by Ej Cueto DO at [facility] EGD, FLEXIBLE, DIAGNOSTIC 11/20/2022 normal / ESOPHAGOGASTRODUODENOSCOPY (EGD), FLEXIBLE, TRANSORAL, DIAGNOSTIC performed by Devonte Munguia MD at [facility] Current Outpatient Medications Medication Sig Dispense Refill Benzonatate 100 MG Oral Capsule (Tessalon Perles) Take 1 Capsule by mouth 3 times a day as needed for Cough. Do not cut, crush, or chew. 50 Capsule 1 Nerlynx 40 MG Oral Tablet Start: 02/15/24 10:41:00 AM EDT, 180 each, 0 Refill(s) Probiotic & Acidophilus Ex St Oral Capsule Probiotics Oral daily active Multivitamin Adult Extra C Oral Tablet Chewable 1 Tablet. [place]-3 Fish Oil 1000 MG Oral Capsule ([place]-3) 1 Capsule. Tamoxifen Citrate 20 MG Oral Tablet 1 Tablet. No current facility-administered medications for this visit. Review of patient's allergies indicates: Allergen Reactions Pollen Rhinitis Most Recent Immunizations Administered Date(s) Administered COVID-19 mRNA, LNP-s, No Preserve, 2-Dose Series (Moderna) 10/12/2020 Seasonal Influenza Vac., MDV, IM, 0.5 mL (Fluzone) 05/29/2014 Seasonal Influenza, PF, 6 M & above, IM , (FluLaval or Fluzone) 05/12/2023 Seasonal Influenza, Quadrivalent, No Preserve, IM 06/06/2015 TDAP (age 10 and older)(Boostrix) 01/21/2015 TDAP, Age 7 and older, IM (Adacel) 01/18/2007 Review of Systems: Review of Systems Constitutional: Negative for fatigue and fever. Respiratory: Negative for shortness of breath. Cardiovascular: Negative for chest pain. Gastrointestinal: Negative for nausea. Neurological: Positive for dizziness and headaches. Negative for syncope. Physical Exam: Filed Vitals: 08/15/24 0859 BP: 114/76 Pulse: 57 Resp: 16 SpO2: 96% Physical Exam HENT: Head: Normocephalic. Cardiovascular: Rate and Rhythm: Normal rate and regular rhythm. Pulmonary: Effort: Pulmonary effort is normal. Breath sounds: Normal breath sounds. Neurological: General: No focal deficit present. Mental Status: She is alert and oriented to person, place, and time. Cranial Nerves: Cranial nerves 2-12 are intact. Motor: Motor function is intact. Coordination: Coordination is intact. Gait: Gait is intact. Psychiatric: Mood and Affect: Mood normal. Behavior: Behavior normal. Thought Content: Thought content normal. Judgment: Judgment normal. Assessment and Plan: 1. Worst headache of life (Primary) X 2 DAYS HX OF BREAST CA CHECK cCT - CT HEAD/BRAIN W WO CONTRAST 2. Invasive ductal carcinoma of breast, female, left (HCC) I have advised the patient to call our office incase of any worsening or new symptoms. I spent a total of 20-29 minutes (exact time 25 mins) on the date of service in preparation, delivery, and documentation of the care provided to Asad Reed excluding any time spent in the performance of separately billed services. July, DANTE, CALIN [facility] documented in this encounter Nursing Notes * Joyce Birch MED ASSIST - 08/15/2024 8:56 AM EST The patient has been properly identified by confirmation of name and date of . Chief Complaint Patient presents with Acute Patient presents in office today for concerns with DOYLE (located in the R side) since about roughly Wednesday night into Wednesday all day. Patient did not take anything for the headache. documented in this encounter Plan of Treatment Upcoming Encounters Date Type Department Care Team (Late st Contact Info) Description 11/22/2024 10:40 AM EDT Office Visit [facility] [address] [place] [address] Rylan Escobar MD [address] [place] [address] Scheduled Procedures Name Priority Associated Diagnoses Date/Ti [...] Not on filedocumented as of this encounter Procedures Procedure Name Priority Date/Time Associated Diagnosis Comments CT HEAD/BRAIN W WO CONTRAST STAT 08/15/2024 9:48 AM EST Worst headache of life documented in this encounter Results * CT HEAD/BRAIN W WO CONTRAST (08/15/2024 9:48 AM EST) Anatomical Region Laterality Modality Head Computed Tomogra phy 08/15/2024 10:0 1 AM EST Impressions 08/15/2024 9:58 AM EST IMPRESSION 1. No acute intracranial abnormality. MRI is more sensitive for detecting subtle findings. Narrative 08/15/2024 9:[address] HEAD/BRAIN W WO CONTRAST 08/15/2024 9:48 am HISTORY WORST HEADACHE OF LIFE; Headache; Acute DOYLE (< 3 months), no complicating features COMPARISON No Comparison. TECHNIQUE Multiple contiguous axial images were obtained from the superior calvarium to the C1 vertebral body without and with contrast. Axial, sagittal and coronal reformatted images were created for evaluation. FINDINGS There is no acute hemorrhage or infarct. There is no mass mass effect or midline shift. Ventricles and basal cisterns are normal. There is no extra-axial fluid collection. Midline structures are normal. Orbits and paranasal sinuses are normal. Calvarium is normal. Parotid glands appear normal. Procedure Note Aureliano Lara MD - 08/15/[address] HEAD/BRAIN W WO CONTRAST 08/15/2024 9:48 am HISTORY WORST HEADACHE OF LIFE; Headache; Acute DOYLE (< 3 months), no complicatingfeatures COMPARISON No Comparison. TECHNIQUE Multiple contiguous axial images were obtained from the superior calvariumto the C1 vertebral body without and with contrast. Axial, sagittal andcoronal reformatted images were created for evaluation. FINDINGS There is no acute hemorrhage or infarct. There is no mass mass effect ormidline shift. Ventricles and basal cisterns are normal. There is noextra-axial fluid collection. Midline structures are normal. Orbits andparanasal sinuses are normal. Calvarium is normal. Parotid glands appearnormal. IMPRESSION IMPRESSION 1. No acute intracranial abnormality. MRI is more sensitive for detectingsubtle findings. us Shelbi Avila BARREL [employer]IF[employer] OPERATOR RAD CT Final Result documented in this encounter Visit Diagnoses Diagnosis Worst headache of life- Primary Headache Invasive ductal carcinoma of breast, female, left (HCC) Genetic defect Other ill-defined conditions documented in this encounter Care Teams Leather Coater Relationship Specialty Start Date End Date Rylan Escobar MD [address] [facility] [place] [address] PCP - General Family Medicine 10/19/20 documented as of this encounter
--- OUTSIDE RECORDS SUMMARY | 2024-09-30 11:56 | External Medical Summary | Summary of Care ---
Author Name Unknown Organization [facility] Address [address] [place] [address] Phone [phone] Care Team Providers Care Weight Calculator Name Role Phone Rylan Escobar MD Primary Care Provider [phone] Reason for Visit * Reason Onset Date Comments Appointment 08/14/2024 Headaches Encounter Details Date Type Department Care Team ([facility] st Contact Info) Description 08/14/2024 Telephone Family Practice [facility] [address] [facility] [place] [address] Rylan Escobar MD [address] [address] [facility] [place] [address] Appointment (Headaches) Allergies Active Allergy Reactions Criticality Noted Date Comments Pollen Low 12/02/2023 Rhinitis documented as of this encounter (statuses as of 08/14/2024) Medications Tamoxifen Citrate 20 MG Oral Tablet 1 Tablet. 2 Active [place]-3 Fish Oil 1000 MG Oral Capsule (Frostproof-3) 1 Capsule. 2 Active Multivitamin Adult Extra C Oral Tablet Chewable 1 Tablet. 2 Active Probiotic & Acidophilus Ex St Oral Capsule Probiotics Oral daily active Active Zepbound 5 MG/0.5ML Subcutaneous Solution Auto-injector (TirzeWilfred ght Management)Indic ations:Class 1 obesity due to excess calories without serious comorbidity with body mass index (BMI) of 33.0 to 33.9 in adult Inject 5 mg under the skin once a week. 2 mL 5 4 Active Additional Information Patient not taking.Reported on 07/02/2024 Nerlynx 40 MG Oral Tablet Start: 02/15/24 10:41:00 AM EDT, 180 each, 0 Refill(s) 4 Active Benzonatate 100 MG Oral Capsule (Margoth Keita)Indicatio ns:Sinobronchiti s Take 1 Capsule by mouth 3 times a day as needed for Cough. Do not cut, crush, or chew. 50 Capsule 1 4 Active documented as of this encounter (statuses as of 08/14/2024) Active Problems Problem Noted Date Diagnosed Date Prediabetes 12/15/2021 Overview: Per Prediabetes protocol Invasive ductal carcinoma of breast, female, lef t 12/05/2021 Depression with anxiety 08/03/2021 Obesity, Class I, BMI 30.0-34.9 (see actual BMI) 01/18/2012 documented as of this encounter (statuses as of 08/14/2024) Resolved Problems Problem Noted Date Diagnosed Date Resolved Date Pre-invasive breast cancer, left 08/03/2021 12/05/2021 Bronchitis 06/01/2018 10/22/2018 Allergic conjunctivitis 12/05/201510/03 Allergic rhinitis 01/09/2013 10/19/2020 Spasm of muscle 09/07/2011 12/06/2017 Folliculitis 12/09/2010 12/06/2017 Supervision of other high-risk 12/09/2010 03/14/2013 Overview (10/08/2015): ICD-10 update of inactive term Abnormal chromosomal analysis 12/09/2010 10/22/2020 Backache 08/07/2009 12/06/2017 documented as of this encounter (statuses as of 08/14/2024) Immunizations Name Administration Dates Next Due COVID-19 [...] on file documented as of this encounter Miscellaneous Notes * Telephone Encounter - Estela Rosas LPN - 08/14/2024 11:11 AM EST Patient scheduled with Nilson Avila tomorrow for evaluation. * Telephone Encounter - Karrie Mike OSA - 08/14/2024 10:45 AM EST Patient spouse called to inform Dr. Escobar that patient needs to be seen by you in regards to very bad headaches on the right side. Please contact patient spouse and advise on scheduling an appointment with you. documented in this encounter Plan of Treatment Upcoming Encounters Date Type Department Care Team (Late st Contact Info) Description 08/15/2024 8:40 AM EST Office Visit [facility] [address] [place] [address] Shelbi Avila CRNP [address] [place] [address] 11/22/2024 10:40 AM EDT Office Visit [facility] [address] [place] [address] Rylan Escobar MD [address] [place] [address] Scheduled Procedures Name Priority Associated Diagnoses Date/Ti [...] 01/21/2025 01/21/2015, 01/18/2007 Lipid Panel 10/22/2025 10/22/2020, 12/03/2019, 04/28/2018, Additional history exists Colonoscopy 11/21/2027 11/20/2022, [...] filedocumented as of this encounter Care Teams Weight Calculator Relationship Specialty Start Date End Date Rylan Escobar MD [address] [place] [address] PCP - General Family Medicine 10/19/20 documented as of this encounter
--- OUTSIDE RECORDS SUMMARY | 2024-09-30 11:56 | External Medical Summary | Continuity of Care Document ---
Author Name Unknown Organization [facility] Brielle CARDENAS [address] [place] [address] [place] [id number] Care Team Providers Care Equipment Service Associate Name Role Phone Rylan Escobar Primary Care Physician [phone] Encounter [facility] [id number] Date(s): 09/14/24 - [facility] [place] [address] [facility] [address] [facility], [address], Entrance [place] [address] [phone] Encounter Diagnosis Breast cancer, left(Discharge Diagnosis) - 09/14/24 Discharge Disposition: Home or Self Care Attending Physician: MD Rodriguez Kristine L Referring Physician: MD Escobar Anthony J Encounter Type: [facility] [employer] Allergies, Adverse Reactions, Alerts No Known Allergies Assessment and Plan Extracted from: Title:Clinical Document Author:MD Rodriguez Kris tine L Date:09/14/24 OUTPATIENT NOTE Name: KVNG MORRIS Patient Number:[id number] : 1975 Date of Service: 09/14/2024 CHIEF COMPLAINT: Left breast cancer. HISTORY OF PRESENT ILLNESS: I had the pleasure of seeing Kvng Morris in the office. As you know, she is a very pleasant 47-year-old female, who is status post left breast partial mastectomy and sentinel node biopsy. She had 4 lymph nodes removed, all were negative for metastatic disease. 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 All margins were negative. She underwent radiation since her last visit, finished on March 25 2023. She had additional systemic chemotherapy after surgery due to the fact that her tumor is ER/CO and HER-2 positive. She did well with the chemotherapy. She reports no new masses in the breast. No new redness or dimpling of the skin. No new fevers or lymphadenopathy. No nipple discharge, nipple inversion, nipple pruritus. She had a mammogram performed today which I chance to pursue the films as well as reports and based on imaging there is no evidence of malignancy. She remains on neratinib and tamoxifen. PAST MEDICAL HISTORY: She reports no new medical problems. PAST SURGICAL HISTORY: No new surgeries. FAMILY HISTORY: No new family history of any cancer. REVIEW OF SYSTEMS: She reports no new headaches double vision no new abdominal pain diarrhea constipation cough shortness of breath difficulty breathing and new bone or joint pain. She does report some diarrhea with a newer medication. PHYSICAL EXAM: The patient is awake and alert and oriented x3. Blood pressure is 131/79 pulse of 75 temp 36.4. She is 155.8 cm she is 79 kg. She is well nourished, in no acute distress. She has normal affect. No depression. No anxiety. Normal memory. There is no evidence of any palpable cervical, supraclavicular, or axillary adenopathy. The neck is supple. She has normal range of motion of bilateral extremities. Examination of chest wall failed to reveal any skin dimpling with movement of pectoralis. There is no nipple retraction. Lungs are clear to auscultation bilaterally without rales, rhonchi, or wheezing. She has normal respiratory effort. Heart is regular rate and rhythm without murmurs, gallops, or rubs. She has normal gait and station. Examination of the chest wall failed to reveal any skin dimpling with movement of pectoralis. Examination of bilateral breasts failed to reveal any dominant mass or areas of significant nodularity. Abdomen is soft, flat, nondistended, and nontender. IMPRESSION AND PLAN: In summary, Kvng Morris is a very pleasant 47-year-old female, status post left breast partial mastectomy and sentinel node biopsy for a left breast stage 1, T1 N0 M0, ER/CO positive, HER-2/laureano positive tumor, who underwent adjuvant chemotherapy and radiation. Based on exam, there is no evidence of recurrence or metastatic disease. Due to the fact that she is 3 years out plan is for follow- up in 1 year with a clinical breast exam as well as a mammogram. I also recommend that she get an MRI in 6 months. The patient's questions were answered to her satisfaction. She expressed understanding of recommendation. I appreciate the opportunity to participate in the patient's care, and please do not hesitate to contact me in the future should you develop any questions or concerns. Medications Centrum Silver Start: 09/04/21 10:12:00 AM EST, See Instructions, 1 tab PO takes occassionally Start Date: 09/04/21 Status: Ordered Repeat number: 1 Nerlynx 40 mg oral tablet Start: 02/15/24 10:41:00 AM EDT, 180 each, 0 Refill(s) Start Date: 02/15/24 Status: Ordered Repeat number: 1 [place]-3 Fish Oil Start: 09/04/21 10:11:00 AM EST, 1,000 mg =, PO, Daily Start Date: 09/04/21 Status: Ordered Repeat number: 1 Probiotic Formula Start: 08/01/24 1:33:00 PM EST, 1 cap, PO Start Date: 08/01/24 Status: Ordered Repeat number: 1 tamoxifen 20 mg oral tablet Start: 03/26/22 2:27:00 PM EDT, 1 tab, PO, Daily, 30 each Start Date: 03/26/22 Status: Ordered Repeat number: 1 Mental Status 09/14/24 Barriers to Learning one year Language b arrier, Other: no interperter needed Mandatory Health Literacy Documentation Yes Health Literacy Communication Barriers N ever Primary Language Upper Sorbian Problem List Condition Confirmation Course Effective Dates Status Health St atus Informant 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/21 Active COVID-19 vaccine series completed Confirmed Active Malignant neoplasm of left breast Confirmed Active Mixed anxiety and depressive disorder Confirmed 08/03/21 Active Obese class I Confirmed 01/18/12 Active Heart palpitations Confirmed Active Sleep apnea 1 Confirmed Active 1prescribed nocturanl CPAP but does not use Diagnosis Diagnosis Type Effective Dates Health Status Cl inical Service Informant Breast cancer, left Discharge Diagnosis 09/14/24 Procedures Procedure Date Related Diagnosis Body Site Status MRI of bilateral breasts 01/22/22 Completed Echocardiography for detecti ng cardiac output 01/19/22 Completed MRI of bilateral breasts 01/2022 Completed Partial mastectomy of left breast 1 09/08/21 Completed Colonoscopy 06/05/20 Completed 1with SNBX Vital Signs Most recent to oldest [Reference Range]: 1 Patient Weight 79 kg (09/14/24 1:02 PM) Temperature [36.5-37.9 DegC] 36.4 DegC *LOW* (09/14/24 1:02 PM) Heart Rate 75 bpm (09/14/24 1:02 PM) Blood Pressure 131/79mmHg (09/14/24 1:02 PM) Cuff Pulse Pressure 52 mmHg (09/14/24 1:02 PM) Social History Social History Type Response Smoking Status Never smoked cigaret agnes Sex Female Sex Representation Female (finding) Outpatient Note * MD Jennifer, Fely Dennis: PERFORM Event Display: .Outpt Note Authored Date: [id number] OUTPATIENT NOTE Name: KVNG MORRIS Patient Number:1 [id number] : 1975 Date of Service: 09/14/2024 CHIEF COMPLAINT: Left breast cancer. HISTORY OF PRESENT ILLNESS: I had the pleasure of seeing Kvng Morris in the office. As you know, she is a very pleasant 47-year-old female, who is status post left breast partial mastectomy and sentinel node biopsy. She had 4 lymph nodes removed, all were negative for metastatic disease. 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 All margins were negative. She underwent radiation since her last visit, finished on March 25 2023. She had additional systemic chemotherapy after surgery due to the fact that her tumor is ER/CO and HER-2 positive. She did well with the chemotherapy. She reports no new masses in the breast. No new redness or dimpling of the skin. No new fevers or lymphadenopathy. No nipple discharge, nipple inversion, nipple pruritus. She had a mammogram performed today which I chance to pursue the films as well as reports and based on imaging there is no evidence of malignancy. She remains on neratinib and tamoxifen. PAST MEDICAL HISTORY: She reports no new medical problems. PAST SURGICAL HISTORY: No new surgeries. FAMILY HISTORY: No new family history of any cancer. REVIEW OF SYSTEMS: She reports no new headaches double vision no new abdominal pain diarrhea constipation cough shortness of breath difficulty breathing and new bone or joint pain. She does report some diarrhea with a newer medication. PHYSICAL EXAM: The patient is awake and alert and oriented x3. Blood pressure is 131/79 pulse of 75temp 36.4. She is 155.8 cm she is 79 kg. She is well nourished, in no acute distress. She has normal affect. No depression. No anxiety. Normal memory. There is no evidence of any palpable cervical, talbot praclavicular, or axillary adenopathy. The neck is supple. She has normal range of motion of bilateral extremities. Examination of chest wall failed to reveal any skin dimpling with movement of pectoralis. There is no nipple retraction. Lungs are clear to auscultation bilaterally without rales, rhonchi, or wheezing. She has normal respiratory effort. Heart is regular rate and rhythm without murmurs, gallops, or rubs. She has normal gait and station. Examination of the chest wall failed to reveal any skin dimpling with movement of pectoralis. Examination of bilateral breasts failed to reveal any dominant mass or areas of significant nodularity. Abdomen is soft, flat, nondistended, and nontender. IMPRESSION AND PLAN: In summary, Kvng Morris is a very pleasant 47-year-old female, status post left breast partial mastectomy and sentinel node biopsy for a left breast stage 1, T1 N0 M0, ER/CO positive, HER-2/laureano positive tumor, who underwent adjuvant chemotherapy and radiation. Based on exam, there is no evidence of recurrence or metastatic disease. Due to the fact that she is 3 years out plan is for follow-up in 1 year with a clinical breast exam as well as a mammogram. I also recommend that she get an MRI in 6 months. The patient's questions were answered to her satisfaction. She expressed understanding of recommendation. I appreciate the opportunity to participate in the patient's car e, and please do not hesitate to contact me in the future should you develop any questions or concerns. Electronic Signature on File Electronically Reviewed/Signed by: Fely Rodriguez MD Author Signature Dt/Tm:09/14/2024 01:22 PM Division of General Surgery BILL Patient Care team information Care Team Personnel Name: MD Escobar Anthony J Position: Referring DIRECT Member Role: Primary Care Provider Address: [facility] [address] [place] [address] Telecom: [phone] Name: MD Rodriguez Kristine L Position: Physician - Surgery Oncology Member Role: Lifetime Relationship Address: [address] [place] [id number] Telecom: [phone] Care Team Related Persons Name: GERMAIN JUAREZ Insurance Providers Guarantor name: KVNG MORRIS [employer] [facility] Information #: 2 Payer: [employer] Member Number: [id number] Policy Number: NA Group Number: NA Health Plan Information #: 1 Payer: [employer] HEALTH PLAN Member Number: [id number] Policy Number: NA Group Number: [id number] Health Plan Information #: 3 Payer: [email or web address] Member Number: NA Policy Number: NA Group Number: NA
[2024-09-30 11:59] LABS: Basophils # (auto) 0.04 K/uL (0.00-0.20); Basophils % (auto) 0.5 %; Eosinophils # (auto) 0.12 K/uL (0.00-0.50); Eosinophils % (auto) 1.4 %; Hematocrit (blood only) 35.6 % (37.0-47.0); Hemoglobin 11.7 g/dl (12.0-16.0); Immature Granulocytes # (auto) 0.02 K/uL (0.01-0.20); Immature Granulocytes % (auto) 0.2 %; Lymphocytes # (auto) 2.31 K/uL (1.20-3.40); Lymphocytes % (auto) 26.8 %; Mean Corpuscular Hemoglobin 28.5 pg (25.0-34.0); Mean Corpuscular Hgb Conc 32.9 g/dL (32.0-36.0); Mean Corpuscular Volume 86.8 fL (80.0-100.0); Mean Platelet Volume 9.5 fL (9.4-12.4); Monocytes # (auto) 0.73 K/uL (0.11-0.59); Monocytes % (auto) 8.5 %; Neutrophils # (auto) 5.41 K/uL (1.40-6.50); Neutrophils % (auto) 62.6 %; Platelet Count 254 K/uL (130-400); RDW Coefficient of Variation 13.4 % (11.5-14.5); RDW Standard Deviation 42.5 fL (36.4-46.3); White Blood Count 8.63 K/ul (4.8-10.8)
[2024-09-30 12:14] LABS: Alanine Aminotransferase 38 U/L (7-52); Albumin Globulin Ratio 1.4 (0.9-2); Albumin Level 3.8 gm/dl (3.4-5.0); Alkaline Phosphatase 61 U/L (34-104); Anion Gap 3 (3-11); Aspartate Aminotransferase 98 U/L (13-39); BUN Creatinine Ratio 32.4 (10-20); Bilirubin,Total 0.5 mg/dl (0.2-1.0); Blood Urea Nitrogen 22 mg/dl (6-23); Calcium 8.7 mg/dl (8.6-10.3); Carbon Dioxide 29 mmol/L (21-32); Chloride 108 mmol/L (98-107); Creatinine Clr Calc Pharmacy 101.6 ml/min; Globulin 2.7 gm/dl (2.5-4.0); Glucose 126 mg/dl (70-99(Fasting)); Lipase 34 U/L (11-82); Potassium 3.7 mmol/L (3.5-5.1); Sodium 140 mmol/L (136-145); Total Protein 6.5 gm/dl (6.0-8.3)
[2024-09-30 12:21] LABS: Troponin I High Sensitivity < 2.3 pg/ml (0-14)
[2024-09-30 12:24] LABS: Appearance Urine Clear (Clear); Bacteria Urine Automated None Seen (None Seen); Bilirubin Urine Negative (Negative); Blood Urine Negative (Negative); Cast Urine Automated 0-2 /lpf (0-2); Color Urine Dark Yellow; Epithelial Cell Urine Auto 0-2 /hpf (0-2); Glucose Urine UA Negative (Negative); Ketones Urine Trace (Negative); Leukocyte Esterase Urine Negative (Negative); Nitrite Urine Negative (Negative); Protein Urine Trace (Negative); RBC Urine Automated 0-2 /hpf (0-2); Specific Gravity Urine 1.029 (1.000-1.030); Urobilinogen Urine Negative (Negative); WBC Urine Automated 0-5 /hpf (0-5); pH Urine 5.5 (4.5-7.5)
[2024-09-30 12:24] LABS: INR 0.9 (0.9-1.1)
--- NOTE | 2024-09-30 12:39 | XRay Report ---
HISTORY: Epigastric pain. TECHNIQUE: Acute abdominal series radiographs including PA radiograph of the chest and upright and supine AP abdominal radiographs. 4 views are provided. COMPARISON: Chest radiograph dated 11/13/2021. FINDINGS: Right chest Mediport with catheter tip overlying the SVC. Lungs are clear. No pneumothorax or pleural effusion. Normal heart size. Left-sided aortic arch. Midline trachea. Postsurgical changes of the left chest wall. No acute osseous abnormality. Gas within nondilated colon and small bowel. No obvious free air or pneumatosis. No suspicious calcifications. Hepatomegaly with the liver measuring 22 cm in craniocaudal dimension. Mild degenerative changes of the spine. Mild S-shaped thoracolumbar scoliosis. IMPRESSION: 1. No acute cardiopulmonary findings. 2. No acute abdominal findings. 3. Hepatomegaly with the liver measuring 22 cm in craniocaudal dimension. Electronically signed by Elieser Key 09-30-2024 12:39 PM
[2024-09-30] MEDS: KETOROLAC TROMETHAMINE 15 MG/ML VIAL IV ONE (13:49)
--- NOTE | 2024-09-30 14:47 | Ultrasound Report ---
HISTORY: Right upper quadrant pain. Nausea. TECHNIQUE: Right upper quadrant abdominal ultrasound evaluation. COMPARISON: None. FINDINGS: The visible portion of the pancreatic head and proximal body is unremarkable. Distal body and tail of the pancreas is obscured by bowel gas shadowing. The liver is mildly enlarged measuring 19.1 cm in length. Increased liver echogenicity consistent with hepatic steatosis. The gallbladder is mildly distended. Sludge is present in the gallbladder lumen. Borderline gallbladder wall thickening measuring 0.3 cm in thickness. Possible positive sonographic Chinchilla sign. Trace pericholecystic fluid. The visible proximal common duct is normal in caliber measuring 0.7 cm. The right kidney demonstrates normal cortical echogenicity. No hydronephrosis. IMPRESSION: * Findings suspicious for cholecystitis. Biliary sludge with gallbladder distention, trace pericholecystic fluid, and borderline gallbladder wall thickening measuring up to 0.3 cm.Possible positive sonographic Chinchilla sign. If clinically uncertain, consider correlation with nuclear medicine HIDA scan. * Hepatomegaly and hepatic steatosis. * Additional findings and/or limitations as detailed above. Electronically signed by Elieser Key 09-30-2024 2:46 PM
--- NOTE | 2024-09-30 15:51 | Anesthesiology Consultation ---
Date of Service September 30, 2024 Assessment & Plan (1) Encounter for pre-operative examination: Chart Review Chart Review: Acceptable Risk for Surgery History Height/Weight Height: 5 ft 3 in Weight: 78.7 kg Allergies Allergy/AdvReac Type Severity Reaction Status Date / Time No Known Drug Allergies Allergy Verified 08/08/24 09:15 Medications Home Medications Medication Instructions Recorded Confirmed Last Taken multivitamin 1 tab PO DAILY 02/10/22 09/30/24 Unknown omega-3 fatty acids 1,000 mg 1,000 mg PO DAILY 02/10/22 09/30/24 Unknown capsule tamoxifen 20 mg tablet 20 mg PO DAILY 07/16/22 09/30/24 Unknown lactobacillus combination no.9 4 4,000 mmu cells PO DAILY 01/13/23 09/30/24 Unknown billion cell capsule (Adult 50 Plus Probiotic) loperamide 2 mg capsule (Imodium 2 mg PO Q6H PRN loose stools 01/18/24 09/30/24 Unknown A-D) neratinib 40 mg tablet (Nerlynx) 240 mg PO DAILY 01/18/24 09/30/24 Unknown Past Medical History Medical History (Updated 09/30/24 @ 15:50 by Lio Veras MD) Dysmenorrhea Metrorrhagia Breast cancer Left breast s/p partial mastectomy Past Family History Family History Father , 83yo Lung cancer Mother No problems noted. Brother Anxiety Depression Son No problems noted. Daughter No problems noted. Other No family history of adverse response to anesthesia Denies family history of Ovarian cancer Breast cancer Colorectal cancer Uterine cancer Past Surgical History Surgical History (Updated 09/30/24 @ 15:50 by Lio Veras MD) Status post partial mastectomy of left breast Port-A-Cath in place (11/13/21) Insertion Access Port Right Internal Jugular(Right) with fluoroscopy- Michoacano Campuzano MD, FACS 11/13/2021 History of wisdom tooth extraction Social History Smoking Status: Never smoker Do You Dip or Chew Tobacco: No Hx Alcohol Use: Yes alcohol intake frequency: holidays/special occasions only Hx Substance Use: No substance use type: does not use Physical Exam Vital Signs Last Vital Signs Temp 36.5 C 09/30/24 10:38 Pulse 63 09/30/24 14:00 Resp 13 09/30/24 14:00 BP 134/76 09/30/24 14:00 Pulse Ox 97 09/30/24 14:00 O2 Del Method Room Air 09/30/24 11:48 Testing Laboratory Results 09/30/24 11:45 09/30/24 11:45 PT 10.0 Seconds (9.0-12.0) 09/30/24 11:45 INR 0.9 (0.9-1.1) 09/30/24 11:45 Urine Color Dark Yellow 09/30/24 12:10 Urine Appearance Clear (Clear) 09/30/24 12:10 Urine pH 5.5 (4.5-7.5) 09/30/24 12:10 Ur Specific [place] 1.029 (1.000-1.030) 09/30/24 12:10 Urine Protein Trace (Negative) H 09/30/24 12:10 Urine Glucose (UA) Negative (Negative) 09/30/24 12:10 Urine Ketones Trace (Negative) H 09/30/24 12:10 Urine Nitrite Negative (Negative) 09/30/24 12:10 Ur Leukocyte Esterase Negative (Negative) 09/30/24 12:10 Urine WBC (Auto) 0-5 /hpf (0-5) 09/30/24 12:10 Urine RBC (Auto) 0-2 /hpf (0-2) 09/30/24 12:10 U Hyaline Cast (Auto) 0-2 /lpf (0-2) 09/30/24 12:10 U Epithel Cells (Auto) 0-2 /hpf (0-2) 09/30/24 12:10 Urine Bacteria (Auto) None Seen (None Seen) 09/30/24 12:10 Electrocardiogram Date: 09/10/24 Findings: + NSR @ (65) Echocardiogram Date: 06/08/24 LV Function: normal Valvular Disease: + no significant valvular disease
[2024-09-30] MEDS ORDERED: PROPOFOL IV EMULSION 10 MG/ML 20 ML VIAL IV ONE (15:52)
[2024-09-30] MEDS ORDERED: MIDAZOLAM HCL 1 MG/ML 2ML VIAL ONE (15:52)
[2024-09-30] MEDS ORDERED: LIDOCAINE 2% 2 ML VIAL/AMP(20MG/ML) INFIL ONE (15:52)
[2024-09-30] MEDS ORDERED: ROCURONIUM BROMIDE 10 MG/ML 5 ML VIAL IV ONE (15:52)
[2024-09-30] MEDS ORDERED: fentaNYL citrate PF 100 MCG/2 ML VIAL ONE (15:52)
[2024-09-30] MEDS ORDERED: ONDANSETRON INJ 2 MG/ML 2 ML VIAL ONE (15:54)
[2024-09-30] MEDS ORDERED: DEXAMETHASONE SOD INJ 4 MG/ML VIAL ONE (15:54)
--- NOTE | 2024-09-30 16:14 | History & Physical Report ---
Date of Service September 30, 2024 Assessment & Plan (1) Acute cholecystitis: Plan 48-year-old woman presents with acute cholecystitis. We discussed the risks and benefits of a laparoscopic cholecystectomy. All her questions were answered, she is agreeable to proceed. Will take her to the operating room at the earliest convenience. History of Present Illness Primary Care Provider: Rylan Escobar MD 48-year-old woman presents with 1 day history of severe right upper quadrant pain radiating into her back. She did have nausea but no vomiting. She has had diarrhea. She did have chills but no fevers. Ultrasound demonstrates acute cholecystitis. Allergies Allergy/AdvReac Type Severity Reaction Status Date / Time No Known Drug Allergies Allergy Verified 08/08/24 09:15 Home Medications Medication Instructions Recorded Confirmed Type multivitamin 1 tab PO DAILY 02/10/22 09/30/24 History omega-3 fatty acids 1,000 mg 1,000 mg PO DAILY 02/10/22 09/30/24 History capsule tamoxifen 20 mg tablet 20 mg PO DAILY 07/16/22 09/30/24 History lactobacillus combination no.9 4 4,000 mmu cells PO DAILY 01/13/23 09/30/24 History billion cell capsule (Adult 50 Plus Probiotic) loperamide 2 mg capsule (Imodium 2 mg PO Q6H PRN loose stools 01/18/24 09/30/24 History A-D) neratinib 40 mg tablet (Nerlynx) 240 mg PO DAILY 01/18/24 09/30/24 History Past Med/Surg History Problem List (Updated 09/30/24 @ 16:17 by Sd Zavala MD) Acute cholecystitis Vulvitis History of infusaport central venous catheter insertion Encounter for pre-operative examination Shortness of breath Malignant neoplasm of central portion of left breast in female, estrogen receptor positive (Chronic 07/23/21) Chest pain (Acute) Anxiety Medical History Dysmenorrhea Metrorrhagia Breast cancer Left breast s/p partial mastectomy Surgical History Status post partial mastectomy of left breast Port-A-Cath in place (11/13/21) Insertion Access Port Right Internal Jugular(Right) with fluoroscopy- Michoacano Campuzano MD, FACS 11/13/2021 History of wisdom tooth extraction Family History Father , 83yo Lung cancer Mother No problems noted. Brother Anxiety Depression Son No problems noted. Daughter No problems noted. Other No family history of adverse response to anesthesia Denies family history of Ovarian cancer Breast cancer Colorectal cancer Uterine cancer Social History Smoking Status: Never smoker Second Hand Exposure: Yes (Until marriage); Do You Dip or Chew Tobacco: No; Hx Alcohol Use: Yes Hx Substance Use: No Preferred Language: Kazakh Communication Ability: Effective Visual Impairment: No Limitations Hearing Ability: Normal Mattress Specialist Required: No Beliefs That Will Affect Care: None marital status: Current Living Situation: Spouse and Family Current Living Situation Comment: Lives with and 2 kids current occupational status: employed current occupation: Owns [employer] How many Children do You have: 2 Feels Safe at Home: Yes Diet: regular caffeine: Yes (3 times/week) during the past year weight has: remained stable Assistive Devices: None Review of Systems Review of Systems: All systems reviewed & are unremarkable except as noted in HPI & below Physical Exam Constitutional: WD/WN, vitals as above Eyes: PERRL, conjunctivae normal, anicteric sclerae Neck: trachea midline, no thyromegaly Respiratory: normal respiratory effort; no respiratory distress and no labored breathing Cardiovascular: Rate/Rhythm: regular rate and regular rhythm Gastrointestinal (Abdomen): Inspection/Auscultation: abdomen normal to inspection; abdomen not distended Percussion/Palpation: + abdomen tender ( RUQ) and abdomen soft; no guarding and abdomen not rigid Skin: no rashes, warm and dry Psychiatric: A+Ox3, euthymic affect Results & Data Results & Data Vital Signs (Past 12 Hours) Vital Signs Temp Pulse Resp BP Pulse Ox O2 Del Method 09/30/24 14:00 63 13 97 09/30/24 14:00 134/76 09/30/24 14:00 134/76 09/30/24 14:00 134/76 09/30/24 14:00 134/76 09/30/24 14:00 134/76 09/30/24 14:00 134/76 09/30/24 14:00 134/76 09/30/24 14:00 134/76 09/30/24 14:00 134/76 09/30/24 14:00 134/76 09/30/24 14:00 134/76 09/30/24 14:00 134/76 09/30/24 14:00 134/76 09/30/24 14:00 134/76 09/30/24 13:42 60 21 99 09/30/24 13:39 61 27 H 98 09/30/24 13:30 143/80 H 09/30/24 13:30 143/80 H 09/30/24 13:30 143/80 H 09/30/24 13:30 143/80 H 09/30/24 13:30 143/80 H 09/30/24 13:30 143/80 H 09/30/24 13:30 143/80 H 09/30/24 13:30 143/80 H 09/30/24 13:21 61 33 H 100 09/30/24 13:15 60 28 H 99 09/30/24 13:09 59 L 19 99 09/30/24 13:00 135/80 09/30/24 13:00 135/80 09/30/24 13:00 135/80 09/30/24 13:00 135/80 09/30/24 13:00 135/80 09/30/24 13:00 135/80 09/30/24 13:00 135/80 09/30/24 13:00 135/80 09/30/24 13:00 135/80 09/30/24 13:00 135/80 09/30/24 13:00 135/80 09/30/24 13:00 135/80 09/30/24 12:51 60 19 99 09/30/24 12:46 110/80 09/30/24 12:46 110/80 09/30/24 12:46 110/80 09/30/24 12:46 110/80 09/30/24 12:42 61 23 115/70 99 09/30/24 12:36 60 22 99 09/30/24 12:21 67 21 100 09/30/24 12:00 63 20 100 09/30/24 11:54 59 L 17 100 09/30/24 11:48 65 20 99 Room Air 09/30/24 11:06 60 18 98 09/30/24 10:57 66 09/30/24 10:50 115/70 09/30/24 10:50 115/70 09/30/24 10:50 115/70 09/30/24 10:50 115/70 09/30/24 10:50 115/70 09/30/24 10:50 115/70 09/30/24 10:50 115/70 09/30/24 10:50 115/70 09/30/24 10:50 115/70 09/30/24 10:50 115/70 09/30/24 10:50 115/70 09/30/24 10:50 115/70 09/30/24 10:50 115/70 09/30/24 10:50 115/70 09/30/24 10:50 115/70 09/30/24 10:50 115/70 09/30/24 10:50 115/70 09/30/24 10:38 36.5 C 66 20 104/54 L 100 Room Air Laboratory Results 09/30/24 09/30/24 Range/Units 12:10 11:45 WBC 8.63 (4.8-10.8) K/ul RBC 4.10 L (4.20-5.40) M/uL Hgb 11.7 L (12.0-16.0) g/dl Hct 35.6 L (37.0-47.0) % MCV 86.8 (80.0-100.0) fL MCH 28.5 (25.0-34.0) pg MCHC 32.9 (32.0-36.0) g/dL RDW Std Deviation 42.5 (36.4-46.3) fL RDW Coeff of Fredis 13.4 (11.5-14.5) % Plt Count 254 (130-400) K/uL MPV 9.5 (9.4-12.4) fL Immature Gran % (Auto) 0.2 % Neut % (Auto) 62.6 % Lymph % (Auto) 26.8 % Collin % (Auto) 8.5 % Eos % (Auto) 1.4 % Baso % (Auto) 0.5 % Neut # (Auto) 5.41 (1.40-6.50) K/uL Lymph # (Auto) 2.31 (1.20-3.40) K/uL Collin # (Auto) 0.73 H (0.11-0.59) K/uL Eos # (Auto) 0.12 (0.00-0.50) K/uL Baso # (Auto) 0.04 (0.00-0.20) K/uL Immature Gran # (Auto) 0.02 (0.01-0.20) K/uL PT 10.0 (9.0-12.0) Seconds INR 0.9 (0.9-1.1) Sodium 140 (136-145) mmol/L Potassium 3.7 (3.5-5.1) mmol/L Chloride 108 H (98-107) mmol/L Carbon Dioxide 29 (21-32) mmol/L Anion Gap 3 (3-11) BUN 22 (6-23) mg/dl Creatinine 0.68 (0.6-1.2) mg/dl Est Cr Clr Drug Dosing 101.6 ml/min eGFR 108.03 BUN/Creatinine Ratio 32.4 H (10-20) Glucose 126 H (70-99(Fasting)) mg/dl Calcium 8.7 (8.6-10.3) mg/dl Total Bilirubin 0.5 (0.2-1.0) mg/dl AST 98 H (13-39) U/L ALT 38 (7-52) U/L Alkaline Phosphatase 61 (34-104) U/L Troponin I High Sens < 2.3 (0-14) pg/ml Total Protein 6.5 (6.0-8.3) gm/dl Albumin 3.8 (3.4-5.0) gm/dl Globulin 2.7 (2.5-4.0) gm/dl Albumin/Globulin Ratio 1.4 (0.9-2) Lipase 34 (11-82) U/L Urine Color Dark Yellow Urine Appearance Clear (Clear) Urine pH 5.5 (4.5-7.5) Ur Specific Harrison 1.029 (1.000-1.030) Urine Protein Trace H (Negative) Urine Glucose (UA) Negative (Negative) Urine Ketones Trace H (Negative) Urine Blood Negative (Negative) Urine Nitrite Negative (Negative) Urine Bilirubin Negative (Negative) Urine Urobilinogen Negative (Negative) Ur Leukocyte Esterase Negative (Negative) Urine WBC (Auto) 0-5 (0-5) /hpf Urine RBC (Auto) 0-2 (0-2) /hpf U Hyaline Cast (Auto) 0-2 (0-2) /lpf U Epithel Cells (Auto) 0-2 (0-2) /hpf Urine Bacteria (Auto) None Seen (None Seen) Diagnostic Findings HISTORY: Right upper quadrant pain. Nausea. TECHNIQUE: Right upper quadrant abdominal ultrasound evaluation. COMPARISON: None. FINDINGS: The visible portion of the pancreatic head and proximal body is unremarkable. Distal body and tail of the pancreas is obscured by bowel gas shadowing. The liver is mildly enlarged measuring 19.1 cm in length. Increased liver echogenicity consistent with hepatic steatosis. The gallbladder is mildly distended. Sludge is present in the gallbladder lumen. Borderline gallbladder wall thickening measuring 0.3 cm in thickness. Possible positive sonographic Chinchilla sign. Trace pericholecystic fluid. The visible proximal common duct is normal in caliber measuring 0.7 cm. The right kidney demonstrates normal cortical echogenicity. No hydronephrosis. IMPRESSION: * Findings suspicious for cholecystitis. Biliary sludge with gallbladder distention, trace pericholecystic fluid, and borderline gallbladder wall thickening measuring up to 0.3 cm.Possible positive sonographic Chinchilla sign. If clinically uncertain, consider correlation with nuclear medicine HIDA scan. * Hepatomegaly and hepatic steatosis. * Additional findings and/or limitations as detailed above. Electronically signed by Elieser Key 09-30-2024 2:46 PM Dictated: 09/30/24 [id number] Transcribed:
[2024-09-30 16:30] LABS: Pregnancy Test, Urine Negative (Negative)
[2024-09-30] MEDS ORDERED: KETOROLAC 30 MG/ML VIAL IV PRN ×2 (16:40→18:24)
[2024-09-30] MEDS ORDERED: ATROPINE SULFATE 0.1 MG/ML 10ML SYR IV PRN (16:40)
[2024-09-30] MEDS ORDERED: PROMETHAZINE HCL 6.25 MG in SODIUM CHLORIDE 0.9% 50 ML IV PRN (16:40)
[2024-09-30] MEDS: cefOXitin 2,000 MG in DEXTROSE 5 % MINI-B 50 ML IV ONE (17:01)
[2024-09-30] MEDS ORDERED: cefOXitin SOD 1,000 MG VIAL ONE (17:01)
[2024-09-30] MEDS ORDERED: SUGAMMADEX SODIUM 200 MG/2 ML VIAL IV ONE (17:20)
[2024-09-30] MEDS: BUPIVACAINE/EPINEPHRINE 0.25% 1:200,000 30 ML VIAL ONE (17:33)
--- NOTE | 2024-09-30 17:42 | Operative Report ---
Post Operative Report Pre & Post Diagnosis Operation Date: 09/30/24 16:40 Pre-Op Diagnosis: Acute cholecystitis Post-Op Diagnosis: Acute cholecystitis I identified the patient and participated in the time-out.: Yes Procedure Operation Date: 09/30/24 16:40 Actual Procedures p Laparoscopic Cholecystectomy(Not Applicable) - Sd Zavala MD Surgeon Sd Zavala MD Contact Lens Blocker None Estimated Blood Loss 5 Findings Consistent with Post-Op Diagnosis Specimens gallbladder Drains none Anesthesia Type General Complications none Description of Procedure the patient was taken to the operating room, and placed supine on the operating table. A timeout was performed, perioperative antibiotics were administered, SCD boots were placed. After adequate anesthesia and analgesia was obtained, the abdomen was prepped and draped in the normal sterile fashion. Local anesthetic was injected into and around the proposed incision sites. An incision was made with a 15 blade scalpel in the supraumbilical region and carried down to the level of the fascia. The fascia was grasped with a trach hook, and a varies needle was used to enter the abdominal cavity. The abdomen was insufflated to a pressure of 15 mmHg, and a 11 mm trocar was placed in this location. A 10 mm, 30 degree laparoscope was placed into the abdominal cavity, and the abdomen was surveyed. Two 5 mm trochars were placed along the right costal margin, and one 5 mm trocar was placed in the subxiphoid region under direct visualization. The gallbladder was grasped and retracted cephalad and laterally, exposing the triangle of Calot. Dissection began in the triangle with a combination of blunt dissection with the [place] dissector, and judicious use of the hook cautery. The cystic duct and cystic artery were dissected free circumferentially, and a critical view of safety was obtained. The cystic duct and cystic artery were clipped and transected, and the gallbladder was removed from the gallbladder fossa with the hook cautery. The camera was switched to a 5 mm, the gallbladder was placed in an Endo Catch bag, and removed via the supraumbilical port site. The camera was switched back to the 10 mm camera, and the abdomen was surveyed again. Hemostasis was checked and attended, and was excellent. The abdomen was copiously irrigated and suctioned free. Again hemostasis was checked and was excellent. All trochars were removed under direct visualization. The abdomen was desufflated. The fascia in the 11 mm port site was closed with a 0 Vicryl suture. The skin was closed with a running 4-0 Monocryl subcuticular stitch. Dermabond was applied. The patient tolerated the procedure without complication, and was transferred in stable condition to the PACU. All instrument, needle, and sponge counts were correct at the end of the case. I attest to the content of the Intraoperative Record and any orders documented therein. Any exceptions are noted below.
[2024-09-30] MEDS: fentaNYL citrate PF 100 MCG/2 ML VIAL IV PRN (17:50)
[2024-09-30] MEDS ORDERED: ONDANSETRON INJ 2 MG/ML 2 ML VIAL IV PRN (18:24)
[2024-09-30] MEDS ORDERED: diphenhydrAMINE Capsule 25 MG CAP PO PRN (18:24)
[2024-09-30] MEDS ORDERED: MoRPHine SULFATE 2 MG/ML CARP IV PRN (18:24)
[2024-09-30] MEDS ORDERED: PROMETHAZINE 12.5 MG/50.5 ML BAG IV PRN (18:24)
[2024-09-30] MEDS ORDERED: oxyCODONE/ACETAMINOPHEN 5mg/325mg TAB PO PRN (18:24)
--- NOTE | 2024-09-30 18:36 | Anesthesiology Progress Note ---
Date of Service September 30, 2024 Anesthesia Post Procedure Vital Signs Vital Signs: Temp Pulse Pulse Resp BP BP Pulse Ox 09/30/24 18:29 36.4 C L 63 18 120/64 100 09/30/24 18:15 64 20 131/65 99 09/30/24 18:05 36.5 C 67 16 131/68 99 09/30/24 17:55 71 18 135/59 L 100 09/30/24 17:45 36.1 C L 79 16 132/60 100 09/30/24 16:00 67 19 143/79 H 98 09/30/24 14:00 63 13 97 09/30/24 14:00 134/76 09/30/24 14:00 134/76 09/30/24 14:00 134/76 09/30/24 14:00 134/76 09/30/24 14:00 134/76 09/30/24 14:00 134/76 09/30/24 14:00 134/76 09/30/24 14:00 134/76 09/30/24 14:00 134/76 09/30/24 14:00 134/76 09/30/24 14:00 134/76 09/30/24 14:00 134/76 09/30/24 14:00 134/76 09/30/24 14:00 134/76 09/30/24 13:42 60 21 99 09/30/24 13:39 61 27 H 98 09/30/24 13:30 143/80 H 09/30/24 13:30 143/80 H 09/30/24 13:30 143/80 H 09/30/24 13:30 143/80 H 09/30/24 13:30 143/80 H 09/30/24 13:30 143/80 H 09/30/24 13:30 143/80 H 09/30/24 13:30 143/80 H 09/30/24 13:21 61 33 H 100 09/30/24 13:15 60 28 H 99 09/30/24 13:09 59 L 19 99 09/30/24 13:00 135/80 09/30/24 13:00 135/80 09/30/24 13:00 135/80 09/30/24 13:00 135/80 09/30/24 13:00 135/80 09/30/24 13:00 135/80 09/30/24 13:00 135/80 09/30/24 13:00 135/80 09/30/24 13:00 135/80 09/30/24 13:00 135/80 09/30/24 13:00 135/80 09/30/24 13:00 135/80 09/30/24 12:51 60 19 99 09/30/24 12:46 110/80 09/30/24 12:46 110/80 09/30/24 12:46 110/80 09/30/24 12:46 110/80 09/30/24 12:42 61 23 115/70 99 09/30/24 12:36 60 22 99 09/30/24 12:21 67 21 100 09/30/24 12:00 63 20 100 09/30/24 11:54 59 L 17 100 09/30/24 11:48 65 20 99 09/30/24 11:06 60 18 98 09/30/24 10:57 66 09/30/24 10:50 115/70 09/30/24 10:50 115/70 09/30/24 10:50 115/70 09/30/24 10:50 115/70 09/30/24 10:50 115/70 09/30/24 10:50 115/70 09/30/24 10:50 115/70 09/30/24 10:50 115/70 09/30/24 10:50 115/70 09/30/24 10:50 115/70 09/30/24 10:50 115/70 09/30/24 10:50 115/70 09/30/24 10:50 115/70 09/30/24 10:50 115/70 09/30/24 10:50 115/70 09/30/24 10:50 115/70 09/30/24 10:50 115/70 09/30/24 10:38 36.5 C 66 20 104/54 L 100 O2 Del Method O2 Flow Rate 09/30/24 18:29 Room Air 09/30/24 18:15 Room Air 09/30/24 18:05 Room Air 09/30/24 17:55 Oxymask 4 09/30/24 17:45 Oxymask 6 09/30/24 16:00 Room Air 09/30/24 14:00 09/30/24 14:00 09/30/24 14:00 09/30/24 14:00 09/30/24 14:00 09/30/24 14:00 09/30/24 14:00 09/30/24 14:00 09/30/24 14:00 09/30/24 14:00 09/30/24 14:00 09/30/24 14:00 09/30/24 14:00 09/30/24 14:00 09/30/24 14:00 09/30/24 13:42 09/30/24 13:39 09/30/24 13:30 09/30/24 13:30 09/30/24 13:30 09/30/24 13:30 09/30/24 13:30 09/30/24 13:30 09/30/24 13:30 09/30/24 13:30 09/30/24 13:21 09/30/24 13:15 09/30/24 13:09 09/30/24 13:00 09/30/24 13:00 09/30/24 13:00 09/30/24 13:00 09/30/24 13:00 09/30/24 13:00 09/30/24 13:00 09/30/24 13:00 09/30/24 13:00 09/30/24 13:00 09/30/24 13:00 09/30/24 13:00 09/30/24 12:51 09/30/24 12:46 09/30/24 12:46 09/30/24 12:46 09/30/24 12:46 09/30/24 12:42 09/30/24 12:36 09/30/24 12:21 09/30/24 12:00 09/30/24 11:54 09/30/24 11:48 Room Air 09/30/24 11:06 09/30/24 10:57 09/30/24 10:50 09/30/24 10:50 09/30/24 10:50 09/30/24 10:50 09/30/24 10:50 09/30/24 10:50 09/30/24 10:50 09/30/24 10:50 09/30/24 10:50 09/30/24 10:50 09/30/24 10:50 09/30/24 10:50 09/30/24 10:50 09/30/24 10:50 09/30/24 10:50 09/30/24 10:50 09/30/24 10:50 09/30/24 10:38 Room Air Pain Intensity Abdomen: Pain Intensity: 5 Transfer of Care Handoff Completed per policy Notes Mental Status: alert / awake / arousable Patient Amnestic to Procedure: Yes Nausea / Vomiting: adequately controlled Pain: adequately controlled Airway Patency, RR, SpO2: stable & adequate BP & HR: stable & adequate Hydration State: stable & adequate Anesthetic Complications: no major complications apparent
[2024-10-01] MEDS: ENOXAPARIN INJ 40 MG/0.4 ML SYR SQ SCH (07:42)
--- NOTE | 2024-10-01 10:43 | Discharge Summary ---
Date of Service October 01, 2024 Admission HPI Per Admitting Provider 48-year-old woman presents with 1 day history of severe right upper quadrant pain radiating into her back. She did have nausea but no vomiting. She has had diarrhea. She did have chills but no fevers. Ultrasound demonstrates acute cholecystitis. Principal Diagnosis Acute cholecystitis Discharge Data Allergies Allergy/AdvReac Type Severity Reaction Status Date / Time No Known Drug Allergies Allergy Verified 08/08/24 09:15 Consultations 09/30/24 15:09 ED Decision to Admit Stat Procedures Performed Operation Date: 09/30/24 16:40 Actual Procedures p Laparoscopic Cholecystectomy(Not Applicable) - Sd Zavala MD Ordered Studies 09/30/24 13:19 US gallbladder Stat Hospital Course (1) Acute cholecystitis: 48-year-old woman presents to the emergency department with acute cholecystitis. She was taken to the operating room, the details of which are dictated in a separate operative note. Postoperatively she was taken in stable condition to the PACU and subsequently to the floor. She was maintained on IV pain medications and was transitioned to oral pain medications throughout her hospital course. Her diet was advanced as tolerated. She was up and ambulating without problems. DVT prophylaxis with SCD boots and subcutaneous Lovenox. By the day of discharge, she was not requiring any IV pain medications, and was tolerating her diet well. She was discharged home in stable condition. She will follow-up in 2 weeks. Total Time Total Time Spent Total Time Spent (In Minutes): 30 minutes Discharge Plan Discharge Items Patient Disposition: Home - Self-Care Reason For Visit: POSTOP LAP ZENAIDA Discharge Diagnosis: acute cholecystitis Activity: Per Instructions section Lifting: No more than 25 pounds Sexual Activity: Wait until after follow-up appointment Exercise/Sports: Wait until after follow-up appointment Non-emergency contact: Surgeon Call non-emergency contact if: you have any medication questions, your symptoms worsen, your pain is not controlled, your pain is worsening, your pain is unusual for you, your temperature is above 101.5, your wound has increased redness, your wound has increased drainage and your wound pain has increased Follow-up/Referrals: Rylan Escobar MD [Primary Care Provider] - Diet: Regular Addtl Attending Provider Instructions: Post-Surgical ~Discharge Instructions Activity Recommendations: - lifting limitation: (20 pounds for 2 weeks), - exercise/sex/sports limit: (nonstrenuous for 2 weeks), - driving or machine use limit: (none for 1 week), - Shower/bathe limit: (may shower beginning tomorrow) Diet: - Resume previous diet SPECIAL CARE INSTRUCTIONS: - May shower in 24 hours. Let water run over area and pat dry. - Leave Dermabond in place. - Call the surgeon's office with any questions or concerns - - (ex. temperature higher than 101 degrees F, excessive bleeding or pain). MEDICATIONS: - Resume previous medications unless instructed otherwise by your surgeon. - Ibuprofen 600 mg every 6 hours with food - Percocet 1 every 4 hours, as needed for pain FOLLOW UP VISIT: - If not already scheduled, please call the office to schedule a two week follow-up appointment. Office number Pending Studies at Discharge: No Stand-Alone Forms: My [facility] [place], Smoking Cessation Medications and DC Order Prescriptions: New oxycodone-acetaminophen [Percocet] 5-325 mg tablet 1 tab PO Q6H PRN (Reason: pain) Qty: 10 0RF Continued tamoxifen 20 mg tablet 20 mg PO DAILY Nerlynx 40 mg tablet 240 mg PO DAILY Rx Instructions: must administer with a meal/food loperamide [Imodium A-D] 2 mg capsule 2 mg PO Q6H PRN (Reason: loose stools) Rx Instructions: otc unable to verify omega-3 fatty acids 1,000 mg capsule 1,000 mg PO DAILY Rx Instructions: otc unable to verify multivitamin Tablet 1 tab PO DAILY Rx Instructions: otc unable to verify Adult 50 Plus Probiotic 4 billion cell capsule 4,000 mmu cells PO DAILY Rx Instructions: otc unable to verify Discharge Orders: Discharge Order (Routine); Ordered 10/01/24 Ordered By: Sd Zavala Admission Data Admit Date/Time: 09/30/24 17:52 Attending Provider: Sd Zavala Admit Provider: Sd Zavala Primary Care Provider: Rylan Escobar Other Providers: Sd Zavala
[2024-10-01 11:59] VITALS: BP 125/74; PULSE 78; RESP 18; TEMP 97.9; O2SAT 97
--- NOTE | 2024-10-01 13:20 | Electrocardiogram Report ---
Test Reason : Blood Pressure : */* mmHG Vent. Rate : 65 BPM Atrial Rate : 65 BPM P-R Int : 156 ms QRS Dur : 98 ms QT Int : 430 ms P-R-T Axes : 50 73 52 degrees QTcB Int : 447 ms Normal sinus rhythm Normal ECG When compared with ECG of 15-Sep-2021 18:12, No significant change was found Confirmed by Radha Okeefe (Mack) on 10/01/2024 1:20:52 PM Referred By: REFERRED SELF Confirmed By: Radha Okeefe
== END 2024-10-01 13:31 | disposition home or self-care (01) ==
LOC: ED 10:34 → OR 16:32 → 3N 16:32